=== PATIENT | female | born 1965 | race Two or more races ===

== ENCOUNTER 2023-11-02 14:12 | Emergency (ER) | payer MEDICAID, SELFPAY ==
[2023-11-02] VITALS (7 sets, daily range): BP systolic 145–191; BP diastolic 59–90; PULSE 65–91; RESP 16–18; TEMP 36.6–36.7; O2SAT 96–98; BMI 31.2
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
--- NOTE | ~2023-11-02 | CT_ITS ---
EXAMINATION: CT CHEST WITH CONTRAST CLINICAL INFORMATION: [facility] COMPARISON: Chest x-ray July 2019 TECHNIQUE: Multidetector volumetric CT imaging of the chest was obtained after the administration of 85 mL of Omnipaque 350 intravenous contrast without immediate adverse reactions. Axial MIP volume rendering provided. Sagittal and coronal reformatted images were obtained. This CT examination was performed using dose optimization techniques as appropriate, variously including the following: *Automated exposure control *Adjustment of mA and/or kV according to patient size (this includes techniques or standardized protocols for targeted exams where dose is matched to indication/reason for exam; i.e. extremities or head) *Use of iterative reconstruction technique DLP: 358 mGy-cm FINDINGS: LUNGS: 5 mm calcified right upper lobe nodule suggestive of a calcified granuloma. Lungs are otherwise clear. MEDIASTINUM: Enlarged heart. Possible trace pericardial effusion. Aorta difficult to evaluate due to motion artifact. No mediastinal fluid. No adenopathy. PLEURA: There is no pleural effusion. No pleural mass or thickening. No pneumothorax. AXILLA: No lymphadenopathy. OSSEOUS STRUCTURES: Degenerative changes of the spine. No fracture seen. CT/CT chest w IV con IMPRESSION: Enlarged heart. Possible trace pericardial effusion. No acute posttraumatic findings seen. Thoracic aorta not optimally evaluated due to motion artifact. Fleischner guidelines were followed.
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
--- NOTE | 2023-11-02 15:00 | PC.NURSE ---
pt to CT at this time
[2023-11-02] MEDS: Morphine Sulfate 4 MG/ML CARTRIDGE IVPUSH (15:29)
[2023-11-02] MEDS: 0.9 % Sodium Chloride 1,000 ML 999 ML IV (15:29)
[2023-11-02] MEDS: ondansetron HCL 4 MG/2 ML VIAL IVPUSH ×2 (15:29→19:45)
[2023-11-02 15:31] LABS: MANUAL DIFF FLAG NO
[2023-11-02 15:40] LABS: Basophils Absolute Auto 0.1 X10*3/uL (0.0-0.2); Basophils Percent Auto 0.7 % (0-2); Eosinophils Absolute Auto 0.1 X10*3/uL (0.0-0.4); Eosinophils Percent Auto 1.5 % (0-4); Hematocrit 47.2 % (37.0-47.0); Hemoglobin 15.7 g/dl (12.0-16.0); Imm Gran Abs Auto 0.03 X10*3/uL (0.00-0.03); Imm Gran Pct Auto 0.4 % (0.0-0.4); Lymphocytes Absolute Auto 1.4 X10*3/uL (1.2-4.9); Lymphocytes Percent Auto 20.4 % (20-40); Mean Corpuscular HGB Conc 33.3 g/dl (31.0-35.0); Mean Corpuscular Hemoglobin 28.5 pg (27.0-33.0); Mean Corpuscular Volume 85.8 fL (80.0-98.0); Monocytes Absolute Auto 0.5 X10*3/uL (0.1-1.2); Monocytes Percent Auto 6.9 % (2-11); Neutrophils Absolute Auto 4.8 x10*3/uL (2.0-8.3); Neutrophils Percent Auto 70.1 % (45-73); Platelet Count 226 X10*3/uL (160-400); Red Cell Distribution Width 13.2 % (11.0-16.0); White Blood Count 6.9 X10*3/uL (4.8-10.8)
[2023-11-02 15:48] LABS: Alanine Aminotransferase 22 U/L (0-31); Albumin Level 4.5 g/dL (3.5-5.0); Alkaline Phosphatase 90 U/L (39-117); Anion Gap 12 (12-20); Aspartate Amino Transferase 24 U/L (5-31); Bilirubin Direct 0.1 mg/dL (0.0-0.5); Bilirubin Total 0.5 mg/dL (0.0-1.0); Blood Urea Nitrogen 16 mg/dL (9-16); Calcium 9.9 mg/dL (8.4-10.2); Carbon Dioxide 28 mmol/L (22-29); Chloride 105 mmol/L (96-108); Estimated Glomerular Filt Rate > 60; Glucose Random 107 mg/dL (60-115); Sodium 141 mmol/L (135-145)
[2023-11-02] MEDS: HYDROmorphone HCl 1 MG/ML SYRINGE IVPUSH (16:47)
[2023-11-02] MEDS: iohexoL 350 MG/ML 100 ML INFUS..BTL IV (17:09)
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
[2023-11-02 21:37] LABS: Appearance Urine Clear; Color Urine Yellow; Glucose Urine UA Negative (Negative); Leukocyte Esterase Urine Negative (Negative); Nitrite Urine Negative (Negative); Specific Gravity - Urine >= 1.030 (1.005-1.025); Urine Blood Negative (Negative); Urine Ketones Negative (Negative); Urine Protein Negative (Neg-Trace)
== END 2023-11-02 22:32 | disposition home or self-care (01) ==
PROVIDERS: Physician Assistant Medical; Emergency Provider Emergency Medicine Emergency Medical Services
DX: S06.9X9A Unspecified intracranial injury with loss of consciousness of unspecified duration, initial encounter (principal); S13.4XXA Sprain of ligaments of cervical spine, initial encounter; S52.601A Unspecified fracture of lower end of right ulna, initial encounter for closed fracture; M54.2 Cervicalgia; R51.9 Headache, unspecified; R11.0 Nausea; M25.531 Pain in right wrist; R94.31 Abnormal electrocardiogram [ECG] [EKG]; R07.81 Pleurodynia; M54.50 Low back pain, unspecified; V29.39XA Other motorcycle (driver) (passenger) injured in unspecified nontraffic accident, initial encounter; Y93.9 Activity, unspecified; Y92.481 Parking lot as the place of occurrence of the external cause; Y99.8 Other external cause status; Z79.899 Other long term (current) drug therapy
CPT/HCPCS: 36415; 70450; 71260; 72125; 73110; 74177; 80048; 80076; 81003; 85025; 93005; 96361; 96374; 96375; 96376; 99284; 99285; J1170; J2270; J2405; Q9967

== ENCOUNTER → 2023-11-02 18:55 | Outpatient (BNV) | payer MEDICAID, SELFPAY | PROVIDERS: Emergency Provider Emergency Medicine Emergency Medical Services; Visit Provider Internal Medicine | DX: R94.31 Abnormal electrocardiogram [ECG] [EKG] (principal) | CPT/HCPCS: 93010 ==

== ENCOUNTER 2023-11-08 16:59 | Outpatient (REF) | payer MEDICAID, SELFPAY | END 2023-11-08 17:00 | disposition home or self-care (01) | LOC: HO.HOSX 16:59 | PROVIDERS: Visit Provider Orthopaedic Surgery | DX: Z13.89 Encounter for screening for other disorder (principal) ==

== ENCOUNTER 2023-11-09 07:59 | Outpatient (AMB) | payer MEDICAID, SELFPAY ==
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
[2023-11-09 08:25] VITALS: BMI 31.0
== END 2023-11-09 09:52 | disposition home or self-care (01) ==
PROVIDERS: Visit Provider Orthopaedic Surgery
DX: S52.244A Nondisplaced spiral fracture of shaft of ulna, right arm, initial encounter for closed fracture (principal); S62.654A Nondisplaced fracture of middle phalanx of right ring finger, initial encounter for closed fracture
CPT/HCPCS: 25530; 26740; 99203

== ENCOUNTER 2023-11-09 08:44 | Outpatient (REF) | payer MEDICAID, SELFPAY ==
--- NOTE | ~2023-11-09 | XR_ITS ---
EXAMINATION: XR RIGHT HAND AND WRIST CLINICAL INFORMATION: Pain in right hand, attention right ring finger base. Pain in right wrist. COMPARISON: 11/02/2023 right wrist. TECHNIQUE: 3 views of the right wrist. 3 views of the right hand with attention to the 4th digit. FINDINGS: RIGHT WRIST: Redemonstration of surgical hardware in the distal radius without evidence of failure or loosening. Redemonstration of previously noted well approximated distal radial fractures. Redemonstration of distal ulnar comminuted fractures, one involving the ulnar styloid, a second fracture extending from the articular surface to the ulnar metaphysis and a third oblique fracture involving the metadiaphyseal region extending into the distal ulnar shaft. Alignment is similar. Small bony density again identified at the ulnocarpal joint. RIGHT HAND: There is a mildly displaced comminuted fracture at the base of the proximal phalanx of the 4th digit with extension to the proximal articular surface. Moderate degenerative changes with hypertrophic change and calcifications in adjacent soft tissues at the 2nd DIP and 1st IP joints. XR/XR wrist RT min 3V IMPRESSION: 1. Redemonstration of comminuted fractures of the distal ulna with soft tissue swelling. 2. Distal radial ORIF appears intact. 3. Mildly displaced comminuted fracture of the 4th proximal phalanx. This study was presented today, 11/15/2023, for interpretation. [facility] staff will provide results to referring provider at this time.
--- NOTE | ~2023-11-09 | XR_ITS ---
EXAMINATION: XR RIGHT HAND AND WRIST CLINICAL INFORMATION: Pain in right hand, attention right ring finger base. Pain in right wrist. COMPARISON: 11/02/2023 right wrist. TECHNIQUE: 3 views of the right wrist. 3 views of the right hand with attention to the 4th digit. FINDINGS: RIGHT WRIST: Redemonstration of surgical hardware in the distal radius without evidence of failure or loosening. Redemonstration of previously noted well approximated distal radial fractures. Redemonstration of distal ulnar comminuted fractures, one involving the ulnar styloid, a second fracture extending from the articular surface to the ulnar metaphysis and a third oblique fracture involving the metadiaphyseal region extending into the distal ulnar shaft. Alignment is similar. Small bony density again identified at the ulnocarpal joint. RIGHT HAND: There is a mildly displaced comminuted fracture at the base of the proximal phalanx of the 4th digit with extension to the proximal articular surface. Moderate degenerative changes with hypertrophic change and calcifications in adjacent soft tissues at the 2nd DIP and 1st IP joints. XR/XR hand RT min 3V IMPRESSION: 1. Redemonstration of comminuted fractures of the distal ulna with soft tissue swelling. 2. Distal radial ORIF appears intact. 3. Mildly displaced comminuted fracture of the 4th proximal phalanx. This study was presented today, 11/15/2023, for interpretation. PSA staff will provide results to referring provider at this time.
== END 2023-11-09 08:45 | disposition home or self-care (01) ==
LOC: HO.HOSX 08:44
PROVIDERS: Visit Provider Orthopaedic Surgery
DX: M25.531 Pain in right wrist (principal); M79.641 Pain in right hand
CPT/HCPCS: 25530; 26740; 73110; 73130; 99202

== ENCOUNTER 2023-12-05 13:35 | Outpatient (REF) | payer MEDICAID, SELFPAY | END 2023-12-05 13:36 | disposition home or self-care (01) | LOC: HO.HOSX 13:35 | PROVIDERS: Visit Provider Orthopaedic Surgery | DX: Z13.89 Encounter for screening for other disorder (principal) ==

== ENCOUNTER 2023-12-06 10:03 | Outpatient (AMB) | payer MEDICAID, SELFPAY ==
[2023-12-06 10:35] VITALS: BMI 31.0
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
== END 2023-12-06 11:22 | disposition home or self-care (01) ==
PROVIDERS: Visit Provider Orthopaedic Surgery
DX: S52.244A Nondisplaced spiral fracture of shaft of ulna, right arm, initial encounter for closed fracture (principal); S62.654A Nondisplaced fracture of middle phalanx of right ring finger, initial encounter for closed fracture
CPT/HCPCS: 99024

== ENCOUNTER 2023-12-06 15:37 | Outpatient (REF) | payer MEDICAID, SELFPAY ==
--- NOTE | ~2023-12-06 | XR_ITS ---
EXAMINATION: XR HAND, RIGHT CLINICAL INFORMATION: Pain in right hand, at least 10 cm of ulna to visualize ulnar shaft fracture please. COMPARISON: 11/09/2023, 11/02/2023. Technique: 3 views of the right hand. FINDINGS: Redemonstration of plate and screws status post ORIF of previously noted well approximated distal fractures. Hardware appears intact. Redemonstration of comminuted fractures of the distal ulna: One involves the ulnar styloid, second fracture extends from the articular surface to the ulnar metadiaphysis, and third oblique fracture involves the metadiaphyseal region and extends into the ulnar shaft as previously noted. Alignment is similar. Small bony density again identified at the ulnocarpal joint. Redemonstration of linear lucencies at the base of the middle phalanx of the fourth digit, less conspicuous, characteristic of mildly displaced comminuted fracture at the base of the middle phalanx with some interval bridging callus formation. No definitive fracture of the proximal phalanx of the fourth digit is appreciated. Moderate degenerative changes in DIP joints. XR/XR hand RT min 3V IMPRESSION: 1. Distal radial ORIF appears intact. 2. Redemonstration of comminuted fractures of the distal ulna with soft tissue swelling. 3. Linear lucencies along the proximal aspect/base of the middle phalanx of the fourth digit are concerning for nondisplaced fracture. No definitive fracture of the proximal phalanx of the fourth digit is appreciated.
== END 2023-12-06 15:38 | disposition home or self-care (01) ==
LOC: HO.HOSX 15:37
PROVIDERS: Visit Provider Orthopaedic Surgery
DX: M79.641 Pain in right hand (principal); S52.24 Spiral fracture of shaft of ulna; S62.654D Nondisplaced fracture of middle phalanx of right ring finger, subsequent encounter for fracture with routine healing; X58.XXXD Exposure to other specified factors, subsequent encounter
CPT/HCPCS: 73130; 99212

== ENCOUNTER 2023-12-27 10:56 | Outpatient (AMB) | payer MEDICAID, SELFPAY ==
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
== END 2023-12-27 12:49 | disposition home or self-care (01) ==
PROVIDERS: Visit Provider Orthopaedic Surgery
DX: S52.244A Nondisplaced spiral fracture of shaft of ulna, right arm, initial encounter for closed fracture (principal); S62.654A Nondisplaced fracture of middle phalanx of right ring finger, initial encounter for closed fracture
CPT/HCPCS: 99024

== ENCOUNTER → 2023-12-27 10:56 | Outpatient (BNVA) | payer MEDICAID, SELFPAY | PROVIDERS: Visit Provider Orthopaedic Surgery | DX: S52.24 Spiral fracture of shaft of ulna (principal); S62.654D Nondisplaced fracture of middle phalanx of right ring finger, subsequent encounter for fracture with routine healing | CPT/HCPCS: 99212 ==

== ENCOUNTER 2024-01-02 14:30 | Outpatient (RCR) | payer MEDICAID, SELFPAY ==
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
== END 2024-01-30 14:05 | disposition home or self-care (01) ==
LOC: HO.OT 14:30
PROVIDERS: PCP Physician Assistant; Visit Provider Orthopaedic Surgery
DX: S52.24 Spiral fracture of shaft of ulna (principal); S62.654D Nondisplaced fracture of middle phalanx of right ring finger, subsequent encounter for fracture with routine healing
CPT/HCPCS: 97035; 97110; 97166

== ENCOUNTER 2024-09-17 08:26 | Outpatient (REF) | payer MEDICAID, SELFPAY ==
--- OUTSIDE RECORDS SUMMARY | 2024-09-17 08:45 | XMS_ITS | Clinical Summary ---
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 Active HYDROXYZINE HCL ORAL Take 25 mg by mouth 1 (one) time each day if needed (anxiety). Active sertraline HCl (SERTRALINE ORAL) Take 100 mg by mouth 1 (one) time each day. Active aspirin 81 mg EC tablet Take 1 tablet (81 mg total) by mouth 1 (one) time each day. 90 each 1 05/25/2024 5 Active atorvastatin (LIPITOR) 80 mg tablet Take 1 tablet (80 mg total) by mouth at bedtime. 60 each 1 05/24/2024 5 Active fexofenadine (TERRELL) 60 mg tablet Take 1 tablet (60 mg total) by mouth 2 (two) times a day if needed (sinus congestion) . 60 tablet 08/02/2024 Active Active Problems Problem Noted Date Diagnosed Date Cryptogenic stroke 08/23/2024 Acute ischemic left MCA stroke 05/23/2024 Stroke 05/22/2024 Encounters Date Type Department Care Team Description 09/06/2024 Telephone Neurostroke - [place] [address] [place] [address] Paris Alberto MD Heart monitor 08/30/2024 Telephone [facility] - [address] [place] [phone] Norris Camargo PA Referral (Received routine paper referral - Aug. ab) 08/27/2024 3:45 PM EST - 08/27/2024 11:59 PM EST Hospital [facility] at [address] [phone] Encounter for screening mammogram for malignant neoplasm of breast Discharge Disposition: Home or Self Care 08/15/2024 1:00 PM EST Consult Cardiac Arrythmia - [place] [address] [place] [phone] Sana Cali NP Cerebrovascular accident (CVA), unspecified mechanism (CMS/HCC) (Primary Dx) 08/09/2024 Telephone Cardiac Arrythmia - [place] [address] [place] [phone] Loki Garcia PA monitor results 08/07/2024 1:20 PM EST Office Visit Neurostroke - [place] [address] [place] [address] Paris Alberto MD History of ischemic stroke (Primary Dx) 08/02/2024 3:18 AM EST - 08/02/2024 10:30 AM EST Emergency [facility] Emergency [address] [place] [phone] Susy Topete MD Flores, Carlos M, MD Landry, Jonathan P, MD Chronic nonintractable headache, unspecified headache type (Primary Dx); Blurry vision, bilateral; History of CVA (cerebrovascular accident); Acute sinusitis, recurrence not specified, unspecified location Discharge Disposition: Home or Self Care from Last 3 Months Medical History Medical History Date Comments Hypertension Anemia Depression CVA (cerebral vascular accident) (CMS/HCC) Social History Tobacco Use Types Packs/Day Years Used Date Smoking Tobacco: Never Smokeless Tobacco: Never Tobacco Cessation:Counseling Given: Not Answered Alcohol Use Standard Drinks/Week Comments Yes 0 (1 standard drink = 0.6 oz pur e alcohol) Interpersonal Safety Answer Date Record ed Physical Abuse 05/23/2024 Verbal Abuse 05/23/2024 Comments No Sex and Gender Information Value Date Recorded Sex Assigned at Female 05/22/2024 6:19 PM EST Legal Sex Female 12:54 PM EST Gender Identity Female 08/14/2024 9:10 AM EST Sexual Orientation Choose not to disclose 2024 9:10 AM EST Obstetrics History Para Term AB IAB SAB Ectopic Multiple Livin g Live Births 3 Last Filed Vital Signs Vital Sign Reading Time Taken Comments Blood Pressure 166/87 08/07/2024 1:17 PM EST Pulse 61 08/07/2024 1:17 PM EST Temperature 36.6 ??C (97.9 ??F) 08/02/2024 10:[address] Respiratory Rate 18 08/07/2024 1:17 PM EST Oxygen Saturation 99% 08/07/2024 1:17 PM EST Inhaled Oxygen Concentration - - Weight 77.1 kg (170 lb) 08/27/2024 3:47 PM EST Height 160 cm (5' 3 ) 08/27/2024 3:47 PM EST Body Mass Index 30.11 08/27/2024 3:47 PM EST Plan of Treatment Upcoming Encounters Date Type Department Care Team (Late st Contact Info) Description 09/19/2024 3:40 PM EST Office Visit [facility] [address] [place] [phone] Harsha Mcallister MD [address] [place] [address] [place], [place] [phone] 11/21/2024 3:00 PM EDT Office Visit [facility] [place] [address] [place] [phone] Paris Alberto MD [address] [place] [address] [place], [place] [phone] Health Maintenance Due Date Last Done Comments Hepatitis B Vaccines (1 of 3 - 19+ 3-dose series) 1985 Cervical Cancer Screening: Pap Smear 1987 Pneumococcal Vaccine: 50+ Years (1 of 1 - PCV) 2016 Zoster Vaccines (1 of 2) 2016 Hepatitis C Screening 06/15/2022 Social Influencers of Health Screening 06/15/2022 COVID-19 Vaccine (3 - 2023- season) 2024 12/08/2020, 11/10/2020 Influenza Vaccine (#1) 2024 Hypertension/CHF/CAD Annual BMP Blood Test 08/02/2025 08/02/2024, 06/12/2024, 05/24/2024, Additional history exists Depression Screening 08/09/2025 08/09/2024 Colorectal Cancer Screening: FIT-DNA (Cologuard) 03/09/2026 03/09/2023 Breast Cancer Screening 08/27/2026 08/27/19, 04/13/2023, 03/25/2022, Additional history exists Cholesterol Screening (Lipid Panel) 05/23/2029 05/23/2024, 01/07/2023, 01/07/2023, Additional history exists DTaP,Tdap,and Td Vaccines (2 - Td or Tdap) 06/06/2034 06/06/2024 HIV Screening Completed 07/16/2019 HIB Vaccines Aged Out No longer eligi ble based on patient's age to complete this topic HPV Vaccines Aged Out No longer eligi ble based on patient's age to complete this topic Hepatitis A Vaccines Aged Out No long er eligible based on patient's age to complete this topic IPV Vaccines Aged Out No longer eligi ble based on patient's age to complete this topic MMR Vaccines Aged Out No longer eligi ble based on patient's age to complete this topic Meningococcal ACWY Vaccine Aged Out N o longer eligible based on patient's age to complete this topic Meningococcal B Vacine Aged Out No lo nger eligible based on patient's age to complete this topic Pneumococcal Vaccine: Pediatrics (0 to 5 Years) and At-Risk Patients (6 to 64 Years) Aged Out No longer eligible based on patient's age to complete this topic RSV Immunization Patients Under 20 months Aged Out No longer eligible based on patient's age to complete this topic Varicella Vaccines Aged Out No longer eligible based on patient's age to complete this topic Procedures Procedure Name Priority Date/Time Associated Diagnosis Comments MG MAMMO DIGITAL SCREENING W DEON BILAT Routine 08/27/2024 3:58 PM EST Encounter for screening mammogram for malignant neoplasm of breast MR BRAIN WO AND W CONTRAST STAT 08/02/2024 9:44 AM EST RESPIRATORY VIRUS PANEL MOLECULAR STUDY STAT 08/02/2024 6:[address] HEAD WO CONTRAST STAT 08/02/2024 6 :[address] ANGIO HEAD/NECK STROKE WO AND/OR W CONTRAST STAT 08/02/2024 6:00 AM EST ACTIVATED PARTIAL THROMBOPLASTIN TIME STAT 08/02/2024 3:38 AM EST PROTHROMBIN TIME WITH INR STAT 08/02/2024 3:38 AM EST CBC WITH AUTO DIFFERENTIAL STAT 08/02/2024 2:58 AM EST BASIC METABOLIC PANEL STAT 08/02/2024 2:58 AM EST CBC AND DIFFERENTIAL STAT 08/02/2024 2:58 AM EST ECG 12-LEAD STAT 08/02/2024 2:45 AM EST ECG ANNOTATED 08/02/2024 LIPID PANEL WITH REFLEX TO DIRECT LDL Routine 05/23/2024 8:23 AM EST from Last 3 Months or Most Recently Relevant to Health Maintenance Results * MG Mammo Digital Screening w Deon bilat (08/27/2024 3:58 PM EST) Anatomical Region Laterality Modality Breast Bilateral Mammography 08/28/2024 3:19 PM EST Impressions 08/28/2024 3:23 PM EST No mammographic evidence of malignancy. ??Benign findings. BI-RADS: ??Category 2: Benign RECOMMENDATION(S): 1: Routine screening mammogram BILATERAL in 1 year. -------- FINAL REPORT -------- Dictated By: QUE KENNY Dictated Date: 08/28/2024 15:19 ET Assigned Physician: QUE KENNY Reviewed and Electronically Signed By: QUE KENNY Signed Date: 08/28/2024 15:23 ET Workstation ID: [id number] Transcribed By: Self Edit Transcribed Date: 08/28/2024 15:19 ET Narrative 08/28/2024 3:23 PM EST EXAM: MAMMO DIGITAL SCREENING W DEON BILAT EXAM DATE AND TIME: 08/27/2024 3:47 PM HISTORY: SCREENING MAMMO FOR BREAST CANCER COMPARISON: 04/12/2023 through 12/03/2020 TECHNIQUE: Bilateral digital breast tomosynthesis was performed in the MLO projection. Computer aided detection with Oodle AI 3D 3.1 was employed. TISSUE DENSITY: a: The breasts are almost entirely fatty. FINDINGS: No suspicious masses, grouped microcalcifications, or areas of architectural distortion are seen. ??The skin and vascularity are unremarkable. ??Scattered bilateral benign calcifications are seen. Procedure Note Que Kenny MD - 08/28/2024 EXAM: MAMMO DIGITAL SCREENING W DEON BILAT EXAM DATE AND TIME: 08/27/2024 3:47 PM HISTORY: SCREENING MAMMO FOR BREAST CANCER COMPARISON: 04/12/2023 through 12/03/2020 TECHNIQUE: Bilateral digital breast tomosynthesis was performed in the MLOprojection. Computer aided detection with Oodle AI 3D 3.1 wasemployed. TISSUE DENSITY: a: The breasts are almost entirely fatty. FINDINGS: No suspicious masses, grouped microcalcifications, or areas ofarchitectural distortion are seen. The skin and vascularity areunremarkable. Scattered bilateral benign calcifications are seen. IMPRESSION: No mammographic evidence of malignancy. Benign findings. BI-RADS: Category 2: Benign RECOMMENDATION(S): 1: Routine screening mammogram BILATERAL in 1 year. -------- FINAL REPORT -------- Dictated By: QUE KENNY Dictated Date: 08/28/2024 15:19 ET Assigned Physician: QUE KENNY Reviewed and Electronically Signed By: QUE KENNY Signed Date: 08/28/2024 15:23 ET Workstation ID: [id number] Transcribed By: Self Edit Transcribed Date: 08/28/2024 15:19 ET us Zachery Campbell MD IMG BI PROCEDURES Final Result * MR Brain wo and w Contrast (08/02/2024 9:44 AM EST) Anatomical Region Laterality Modality Head and Neck Magnetic Resonan ce 08/02/2024 9:50 AM EST Impressions 08/02/2024 9:53 AM EST 1. ??No acute intracranial findings. 2. ??Extensive paranasal sinus disease. -------- FINAL REPORT -------- Dictated By: Mango Merino Dictated Date: 08/02/2024 09:50 ET Assigned Physician: Mango Merino Reviewed and Electronically Signed By: Mango Merino Signed Date: 08/02/2024 09:53 ET Workstation ID: [id number] Transcribed By: Self Edit Transcribed Date: 08/02/2024 09:50 ET Narrative 08/02/2024 9:53 AM EST PROCEDURE: Contrast-enhanced MRI of the brain. HISTORY: Brain mass or lesion. TECHNIQUE: Multiplanar multisequence MRI of the brain with and without intravenous contrast. IV CONTRAST DOSE: 15 mL intravenous Dotarem from a 15 mL vial with 0 mL discarded. COMPARISON: Same-day CT. FINDINGS: BRAIN: No diffusion abnormality. ??No mass or extra-axial fluid collection. ??No hydrocephalus. ??The major intracranial flow voids are preserved. Age commensurate ventricles and sulci. ??No abnormal enhancement. ORBITS: Normal. SINUSES/MASTOIDS: Mild mucosal thickening in the medial right frontal sinus and throughout the ethmoid air cells. ??The left maxillary antrum is partially obscured by susceptibility artifact. ??There is prominent circumferential mucosal thickening in both maxillary antra, more prominent on the left. ??Mild mucosal thickening along the floor of the left sphenoid sinus. CALVARIUM: Normal. OTHER: The visualized skull base soft tissues are normal. Procedure Note Mango Merino MD - 08/02/2024 PROCEDURE: Contrast-enhanced MRI of the brain. HISTORY: Brain mass or lesion. TECHNIQUE: Multiplanar multisequence MRI of the brain with and withoutintravenous contrast. IV CONTRAST DOSE: 15 mL intravenous Dotarem from a 15 mL vial with 0 mLdiscarded. COMPARISON: Same-day CT. FINDINGS: BRAIN: No diffusion abnormality. No mass or extra-axial fluid collection.No hydrocephalus. The major intracranial flow voids are preserved. Agecommensurate ventricles and sulci. No abnormal enhancement. ORBITS: Normal. SINUSES/MASTOIDS: Mild mucosal thickening in the medial right frontalsinus and throughout the ethmoid air cells. The left maxillary antrum ispartially obscured by susceptibility artifact. There is prominentcircumferential mucosal thickening in both maxillary antra, more prominenton the left. Mild mucosal thickening along the floor of the left sphenoidsinus. CALVARIUM: Normal. OTHER: The visualized skull base soft tissues are normal. IMPRESSION: 1. No acute intracranial findings. 2. Extensive paranasal sinus disease. -------- FINAL REPORT -------- Dictated By: Mango Merino Dictated Date: 08/02/2024 09:50 ET Assigned Physician: Mango Merino Reviewed and Electronically Signed By: Mango Merino Signed Date: 08/02/2024 09:53 ET Workstation ID: [id number] Transcribed By: Self Edit Transcribed Date: 08/02/2024 09:50 ET Susy Topete MD [facility] [place] MRI PROCEDURES Final Result * Respiratory virus panel molecular study (08/02/2024 6:57 AM EST) Pathologist [facility] Adenovirus Detection by PCR Not Detected Not Detected LAB MICROBIOLOGY METHOD 08/02/2024 8:40 AM EST [facility] Influenza A PCR Not Detected Not Detected LAB MICROBIOLOGY METHOD 08/02/2024 8:40 AM [facility] Influenza B PCR Not Detected Not Detected LAB MICROBIOLOGY METHOD 08/02/2024 8:40 AM [facility] Coronavirus 229E Not Detected Not Detected LAB MICROBIOLOGY METHOD 08/02/2024 8:40 AM [facility] Coronavirus HKU1 Not Detected Not Detected LAB MICROBIOLOGY METHOD 08/02/2024 8:40 AM [facility] Coronavirus OC43 Not Detected Not Detected LAB MICROBIOLOGY METHOD 08/02/2024 8:40 AM [facility] Coronavirus NL63 Not Detected Not Detected LAB MICROBIOLOGY METHOD 08/02/2024 8:40 AM [facility] Parainfluenza Virus 1 Not Detected Not Detected LAB MICROBIOLOGY METHOD 08/02/2024 8:40 AM [facility] Parainfluenza Virus 2 Not Detected Not Detected LAB MICROBIOLOGY METHOD 08/02/2024 8:40 AM [facility] Parainfluenza Virus 3 Not Detected Not Detected LAB MICROBIOLOGY METHOD 08/02/2024 8:40 AM [facility] Parainfluenza Virus 4 Not Detected Not Detected LAB MICROBIOLOGY METHOD 08/02/2024 8:40 AM [facility] RSV PCR Not Detected Not Detected LAB MICROBIOLOGY METHOD 08/02/2024 8:40 AM [facility] Human Metapneumovirus A and B Not Detected Not Detected LAB MICROBIOLOGY METHOD 08/02/2024 8:40 AM [facility] Rhinovirus/Entero virus Not Detected Not Detected LAB MICROBIOLOGY METHOD 08/02/2024 8:40 AM [facility] Bordetella pertussis Not Detected Not Detected LAB MICROBIOLOGY METHOD 08/02/2024 8:40 AM [facility] Bordetella parapertussis Not Detected Not Detected LAB MICROBIOLOGY METHOD 08/02/2024 8:40 AM EST [facility] Mycoplasma pneumo by PCR Not Detected Not Detected LAB MICROBIOLOGY METHOD 08/02/2024 8:40 AM EST [facility] Chlamydia pneumoniae Not Detected Not Detected LAB MICROBIOLOGY METHOD 08/02/2024 8:40 AM EST [facility] SARS COV-2 Not Detected Not Detected LAB MICROBIOLOGY METHOD 08/02/2024 8:40 AM EST [facility] Swab Both anterior nares / Unknown Non-blood Collection / Unknown 08/02/2024 6:57 AM EST 08/02/2024 7:12 AM EST [facility] - 08/02/2024 8:40 AM EST Testing was performed using the [employer] Respiratory Pathogen PCR Assay. All results must be correlated with the clinical findings. Results should not be used as the sole basis for diagnosis. False Negative results may occur from the presence of sequence variants in the region targeted by the assay or the presence of inhibitors. Results may be affected by concurrent antiviral/antimicrobial therapy or levels of organisms that are below the limit of detection. us Susy Topete MD LAB MICROBIOLOGY - GENER AL ORDERABLES Final Result [facility] [address] [place] [address], * CT Angio Head/Neck Stroke wo and/or w Contrast (08/02/2024 6:00 AM EST) Anatomical Region Laterality Modality Head and Neck Computed Tomogra phy 08/02/2024 6:27 AM EST Impressions 08/02/2024 6:27 AM EST Impression: There is no intracranial occlusion. The vasculature of the head and neck is widely patent. Incidental findings. This document has been electronically signed by: Juan Perdue MD on 08/02/2024 06:27:45 Narrative 08/02/2024 6:[address] angiography head and neck with contrast. 3D Postprocessing. Comparison: None Findings: CTA head: intracranial segments of the internal carotid arteries are widely patent. Anterior and posterior circulation are widely patent. No aneurysm, dissection or large vessel occlusion. No significant stenosis. No abnormal postcontrast enhancement. Again, there is near-complete opacification of the maxillary sinuses. CTA neck: Normal branching pattern of the aortic arch. The bilateral common, internal and external carotid arteries are widely patent without significant atherosclerotic disease. The right vertebral artery is mildly dominant. The vertebral arteries are patent bilaterally. No thyroid lesion. The visualized lung apices demonstrate no acute process. Osseous structures of the cervical spine demonstrate mild degenerative change. Procedure Note Juan Perdue MD - 08/02/2024 CT angiography head and neck with contrast. 3D Postprocessing. Comparison: None Findings: CTA head: intracranial segments of the internal carotid arteries are widelypatent. Anterior and posterior circulation are widely patent. No aneurysm, dissection or large vessel occlusion. No significant stenosis. No abnormal postcontrast enhancement. Again, there is near-complete opacification of the maxillary sinuses. CTA neck: Normal branching pattern of the aortic arch. The bilateral common, internal and external carotid arteries are widely patent without significant atherosclerotic disease. The right vertebral artery is mildly dominant. The vertebral arteries are patent bilaterally. No thyroid lesion. The visualized lung apices demonstrate no acute process. Osseous structures of the cervical spine demonstrate mild degenerative change. IMPRESSION: Impression: There is no intracranial occlusion. The vasculature of the head and neck is widely patent. Incidental findings. This document has been electronically signed by: Juan Perdue MD on 08/02/2024 06:27:45 Susy Topete MD IM CT PROCEDURES Final Result * CT Head wo Contrast (08/02/2024 6:00 AM EST) Anatomical Region Laterality Modality Head and Neck Computed Tomogra phy 08/02/2024 6:25 AM EST Impressions 08/02/2024 6:25 AM EST 1. No acute intracranial findings. 2. Significant paranasal sinus disease most pronounced within the maxillary sinuses. This document has been electronically signed by: Juan Perdue MD on 08/02/2024 06:25:57 Narrative 08/02/2024 6:[address] head without contrast Comparison: CT - CT HEAD STROKE WO CONTRAST - 06/12/24 23:35 EST Findings: No intra-axial mass, midline shift, hydrocephalus, or acute hemorrhage. No significant atrophy-like change or white matter disease. There is opacification of the maxillary sinuses and mucoperiosteal thickening of the ethmoid air cells. The orbits are within normal limits. There is no acute fracture. Procedure Note Juan Perdue MD - 08/02/2024 CT head without contrast Comparison: CT - CT HEAD STROKE WO CONTRAST - 06/12/24 23:35 EST Findings: No intra-axial mass, midline shift, hydrocephalus, or acute hemorrhage. No significant atrophy-like change or white matter disease. There is opacification of the maxillary sinuses and mucoperiosteal thickening of the ethmoid air cells. The orbits are within normal limits. There is no acute fracture. IMPRESSION: 1. No acute intracranial findings. 2. Significant paranasal sinus disease most pronounced within the maxillary sinuses. This document has been electronically signed by: Juan Perdue MD on 08/02/2024 06:25:57 Susy Topete MD IMG CT PROCEDURES Final Result * Activated partial thromboplastin time (08/02/2024 3:38 AM EST) [facility] aPTT 29.9 24.1 - 39.3 sec LAB COAGULATION METHOD 08/02/2024 4:20 AM EST [facility] Blood Venous blood specimen / Unknown Venipuncture / Unknown 08/02/2024 3:38 AM EST 08/02/2024 4:04 AM EST Susy Topete MD LAB BLOOD ORDERABLES Fin al Result [facility] [address] [place] [address], [place] [phone] * (ABNORMAL) Prothrombin time with INR (08/02/2024 3:38 AM EST) Pathologist [facility] Protime 14.2(H) 10.6 - 13.9 sec LAB COAGULATION METHOD 08/02/2024 4:20 AM EST [facility] INR 1.1 LAB COAGULATION METHOD 08/02/2024 4:20 AM [facility] Blood Venous blood specimen / Unknown Venipuncture / Unknown 08/02/2024 3:38 AM EST 08/02/2024 4:04 AM EST us Susy Topete MD LAB BLOOD ORDERABLES Fin al Result [facility] [address] [place] [address], * (ABNORMAL) CBC auto differential (08/02/2024 2:58 AM EST) [facility] WBC 7.0 4.8 - 10.8 K/mcL LAB HEMETOLOGY METHOD 08/02/2024 3:13 AM [facility] RBC 4.90(H) 3.80 - 4.80 M/mcL LAB HEMETOLOGY METHOD 08/02/2024 3:13 AM [facility] Hemoglobin 13.6 11.5 - 16.0 g/dL LAB HEMETOLOGY METHOD 08/02/2024 3:13 AM [facility] Hematocrit 42.8 35.0 - 47.0 % LAB HEMETOLOGY METHOD 08/02/2024 3:13 AM [facility] MCV 87.3 79.0 - 98.0 FL LAB HEMETOLOGY METHOD 08/02/2024 3:13 AM [facility] MCH 27.8 27.0 - 32.0 pcg LAB HEMETOLOGY METHOD 08/02/2024 3:13 AM [facility] MCHC 31.8(L) 32.0 - 37.0 g/dL LAB HEMETOLOGY METHOD 08/02/2024 3:13 AM [facility] RDW 12.9 11.0 - 15.0 % LAB HEMETOLOGY METHOD 08/02/2024 3:13 AM [facility] Platelets 252 130 - 400 K/mcL LAB HEMETOLOGY METHOD 08/02/2024 3:13 AM [facility] MPV 9.0 7.0 - 11.0 FL LAB HEMETOLOGY METHOD 08/02/2024 3:13 AM [facility] NRBC 0.0 <1.0 % LAB HEMETOLOGY METHOD 08/02/2024 3:13 AM [facility] NRBC Absolute 0.00 <0.10 K/mcL LAB HEMETOLOGY METHOD 08/02/2024 3:13 AM [facility] Neutrophils Relative 55.3 % LAB HEMETOLOGY METHOD 08/02/2024 3:13 AM [facility] Lymphocytes Relative 33.1 % LAB HEMETOLOGY METHOD 08/02/2024 3:13 AM [facility] Monocytes Relative 8.1 % LAB HEMETOLOGY METHOD 08/02/2024 3:13 AM [facility] Eosinophils Relative 2.0 % LAB HEMETOLOGY METHOD 08/02/2024 3:13 AM [facility] Basophils Relative 0.9 % LAB HEMETOLOGY METHOD 08/02/2024 3:13 AM [facility] Immature Granulocytes Relative 0.6 % LAB HEMETOLOGY METHOD 08/02/2024 3:13 AM [facility] Neutrophils Absolute 3.89 1.50 - 7.00 K/mcL LAB HEMETOLOGY METHOD 08/02/2024 3:13 AM [facility] Lymphocytes Absolute 2.33 1.00 - 5.00 K/mcL LAB HEMETOLOGY METHOD 08/02/2024 3:13 AM [facility] Monocytes Absolute 0.57 0.20 - 1.00 K/mcL LAB HEMETOLOGY METHOD 08/02/2024 3:13 AM EST [facility] Eosinophils Absolute 0.14 0.00 - 0.50 K/[facility] LAB HEMETOLOGY METHOD 08/02/2024 3:13 AM EST [facility] Basophils Absolute 0.06 0.00 - 0.20 K/mcL LAB HEMETOLOGY METHOD 08/02/2024 3:13 AM EST [facility] Immature Granulocytes Absolute 0.04(H) 0.00 - 0.03 K/mcL LAB HEMETOLOGY METHOD 08/02/2024 3:13 AM [facility] Blood Venous blood specimen / Unknown Venipuncture / Unknown 08/02/2024 2:58 AM EST 08/02/2024 3:09 AM EST Susy Topete MD LAB BLOOD ORDERABLES Fin al Result [facility] [address] [place] [address], * (ABNORMAL) Basic metabolic panel (08/02/2024 2:58 AM EST) Sodium 141 133 - 145 mmol/L LAB CHEMISTRY METHOD 08/02/2024 3:29 AM [facility] Potassium 3.5 3.5 - 5.5 mmol/L LAB CHEMISTRY METHOD 08/02/2024 3:29 AM [facility] Chloride 109 96 - 110 mmol/L LAB CHEMISTRY METHOD 08/02/2024 3:29 AM [facility] CO2 28 21 - 32 mmol/L LAB CHEMISTRY METHOD 08/02/2024 3:29 AM [facility] Anion Gap 4 3 - 11 LAB CHEMISTRY METHOD 08/02/2024 3:29 AM EST [facility] Glucose 114(H) 70 - 100 mg/dL LAB CHEMISTRY METHOD 08/02/2024 3:29 AM EST [facility] BUN 17 5 - 25 mg/dL LAB CHEMISTRY METHOD 08/02/2024 3:29 AM [facility] Creatinine 0.82 0.50 - 1.10 mg/dL LAB CHEMISTRY METHOD 08/02/2024 3:29 AM EST [facility] eGFR 83 >=60 mL/min/1. 73m2 LAB CHEMISTRY METHOD 08/02/2024 3:29 AM EST [facility] Comment:Calculation based on the??Chronic Kidney Disease Epidemiology Collaboration (CKD-EPI) equation refit??without adjustment for race. BUN/Creatinine Ratio 20.7 LAB CHEMISTRY METHOD 08/02/2024 3:29 AM EST [facility] Calcium 9.0 8.5 - 10.5 mg/dL LAB CHEMISTRY METHOD 08/02/2024 3:29 AM EST [facility] Blood Venous blood specimen / Unknown Venipuncture / Unknown 08/02/2024 2:58 AM EST 08/02/2024 3:09 AM EST Susy Topete MD LAB BLOOD ORDERABLES Fin al Result [facility] [address] [place] [address], * ECG 12 lead (08/02/2024 2:45 AM EST) Ventricular Rate ECG 54 BPM GEMUSE Atrial Rate 54 BPM GEMUSE P-R Interval 156 ms GEMUSE QRS Duration 102 ms GEMUSE Q-T Interval 410 ms GEMUSE QTc 388 ms GEMUSE P Wave [place] 47 degrees GEMUSE R [place] -16 degrees GEMUSE T [place] 0 degrees GEMUSE ECG Interpretation Sinus bradycardia Minimal voltage criteria for LVH, may be normal variant Borderline ECG When compared with ECG of 12-JUN-2024 23:53, T wave inversion now evident in Inferior leads T wave inversion no longer evident in Anterolateral leads Confirmed by Camille GARCIA JAMES ([id number]) on 08/02/2024 9:33:20 PM GEMUSE 08/02/2024 2:45 AM EST 08/02/2024 9:33 PM EST us Susy Topete MD ECG ORDERABLES Final Re sult GEMUSE * ECG-Annotated (08/02/2024) us Provider Onbase MD ECG ORDERABLES Final Result * (ABNORMAL) Lipid panel with reflex to direct LDL (05/23/2024 8:23 AM EST) Cholesterol 250(H) 0 - 200 mg/dL LAB CHEMISTRY METHOD 05/23/2024 9:15 AM EST [facility] Triglycerides 185(H) <150 mg/dL LAB CHEMISTRY METHOD 05/23/2024 9:15 AM EST [facility] HDL 44 37 - 92 mg/dL LAB CHEMISTRY METHOD 05/23/2024 9:15 AM EST [facility] LDL Calculated 169(H) 50 - 130 mg/dL LAB CHEMISTRY METHOD 05/23/2024 9:15 AM EST [facility] VLDL Cholesterol Janes 37 mg/dL LAB CHEMISTRY METHOD 05/23/2024 9:15 AM EST [facility] Comment:No established refer ence range. Blood Venous blood specimen / Unknown Venipuncture / Unknown 05/23/2024 8:23 AM EST 05/23/2024 8:44 AM EST us Sharonda Camarena MD LAB BLOOD ORDERABLES Final Resul t [facility] [address] [place] [address], [place] [phone] from Last 3 Months or Most Recently Relevant to Health Maintenance Insurance MEDICAID - [place] Advance Directives Documents on File Type Date Recorded Patient Entry Level Account Representative Expl anation Health Care Decision (hx) 09/12/2019 AD RAMOS DIRECTIVE Health Care Decision (hx) 09/12/2019 AD RAMOS DIRECTIVE Health Care Decision (hx) 09/12/2019 AD RAMOS DIRECTIVE Health Care Decision (hx) 09/12/2019 AD RAMOS DIRECTIVE Health Care Decision (hx) 09/12/2019 AD RAMOS DIRECTIVE Health Care Decision (hx) 09/12/2019 AD RAMOS DIRECTIVE Health Care Decision (hx) 09/12/2019 AD RAMOS DIRECTIVE Health Care Decision (hx) 09/12/2019 AD RAMOS DIRECTIVE Health Care Decision (hx) 09/12/2019 AD RAMOS DIRECTIVE Health Care Decision (hx) 09/12/2019 AD RAMOS DIRECTIVE Health Care Decision (hx) 09/12/2019 AD RAMOS DIRECTIVE Health Care Decision (hx) 09/12/2019 AD RAMOS DIRECTIVE Health Care Decision (hx) 09/12/2019 AD RAMOS DIRECTIVE Health Care Decision (hx) 09/12/2019 AD RAMOS DIRECTIVE Health Care Decision (hx) 09/12/2019 AD RAMOS DIRECTIVE Health Care Decision (hx) 09/12/2019 AD RAMOS DIRECTIVE * Full Code - Confirmed (Latest Code Status on File) Date Activated Date Inactivated Comments 05/23/2024 1:41 AM 05/24/2024 8:[address] atus was ascertained in the following way: Code status discussion: discussion with patient To update the patient's code status, place a code status order. Do not modify or discontinue any currently active code status orders. * Full Code - Default Date Activated Date Inactivated Comments 05/22/2024 7:36 PM 05/23/2024 1:41 AM This is orde r is used when code status has not been discussed with the patient, or code status is otherwise unknown/unconfirmed To update the patient's code status, place a code status order. Do not modify or discontinue any currently active code status orders. Care Teams Brasswind Instrument Repairer Relationship Specialty Start Date End Date Norris Camargo PA [address] [place] [address] PCP - General 02/27/21
--- OUTSIDE RECORDS SUMMARY | 2024-09-17 08:47 | XMS_ITS | Encounter Summary ---
Author Organization [facility] Address [address] [place] [address] Care Team Providers Care Communications Designer Name Role Phone Annika Lehman Primary Care Provider [phone] Reason for Visit * Reason Comments Medication Management Encounter Details Date Type Department Care Team ([facility] Contact Info) Description 08/20/2024 11:30 AM EST / Visits [address] [phone] Rashmi Valencia PMHNP [address] [place] [phone] Monique Wise [address] [place] [address] Severe episode of recurrent major depressive disorder, without psychotic features (HCC-CMS) (Primary Dx); Insomnia, unspecified type; Depressed mood Social History Tobacco Use Types Packs/Day Years Used Date Smoking Tobacco: Never Passive Smoke Exposure: Never Smokeless Tobacco: Never Alcohol Use Standard Drinks/Week Comments Not Currently 1 (1 standard drink = 0.6 oz pure alcohol) socially monthly or less than monthy Social Connections Answer Date Recorded Connectedness 0 01/07/2023 Financial Resource Strain Answer Date R ecorded Financial Resource Strain 0 2022 Stress Answer Date Recorded Stress 0 01/07/2023 Physical Activity Answer Date Recorded Physical Activity 0 03/11/2019 Food Insecurity Answer Date Recorded Food 0 01/07/2023 Transportation Needs Answer Date Record ed Transportation 0 01/07/2023 Housing Stability Answer Date Recorded Housing 0 01/07/2023 Safety and Environment Answer Date Carlos rded Safety 0 01/07/2023 Utilities Answer Date Recorded Utilities 0 01/07/2023 Employment Answer Date Recorded Stress 0 01/07/2023 Comments No Sex and Gender Information Value Date Recorded Sex Assigned at Female 11/21/2017 7:04 AM PDT Legal Sex Female 8:36 AM PDT Gender Identity Female 11/21/2017 7:04 AM PDT Sexual Orientation Straight 07/17/2019 7: 21 AM PST COVID-19 Exposure Response Date Recorded In the last 10 days, have yo u been in contact with someone who was confirmed or suspected to have Coronavirus/COVID-19? Unable to assess 08/03/2024 9:55 AM EST documented as of this encounter Progress Notes * Rashmi Valencia, HNP - 08/20/2024 11:49 AM EST The following visit was conducted via Telephone. I educated the patient/guardian on the terms of telehealth and the patient verbally consented to this telemedicine visit. The patient was identified using their Name, and Address. I identified myself as Rashmi Valencia, Psychiatric Nurse Sarah dias from [facility], calling from [place], [place]. It was conducted in a private space to protect HIPPA sensitive information. Precautions were taken to provide confidentiality and security and patient was made aware of privacy considerations. The patient/guardian was notified how they can see a clinician in-person in the event of an emergency or if otherwise needed. TIME STARTED: 11:30am TIME ENDED: 12:00pm Personal Companion used during visit? Monique Wise ASSESSMENT: reports that her mood is sad, I'm always crying . No reports of adverse or side effects with medications. Patient reports improvement and stability appetite and sleep. Patient does not endorse SI/HI/AH/VH. Feels the depression has not improved much, especially when she considers the abilities she has lost after having experienced a stroke. Is working with therapist here a [facility]. Complains of loss of taste and smell, says since having a virus. We discussed current medications, she is finding them somewhat helpful. No changes at this time, will continue with them and with therapy sessions. Objective Note GENERAL APPEARANCE BEHAVIOR AND ATTITUDE: Visit via telehealth. Voice normal tone, inflection, dina, volume. No pressured, rapid speech orlatency noted. No lability or constriction noted. Cooperative with interview, engaged in discussionregarding symptoms and medications. MSE: Emotion/Mood Depressed and Sad Coping (Observed Emotional State) Cooperative and Depression Speech Clear, coherent and Moderate rate & volume Orientation Oriented to all domains Thought Processes WNL Hallucinations Denies hallucinations Other: Additional comments: Delusions No delusions Assessment and Plan F33.2 Severe episode of recurrent major depressive disorder, without psychotic features ([facility]LY [facility]) (primary encounter diagnosis) G47.00 Insomnia, unspecified type R45.89 Depressed mood Plan: Continue on medications prescribed. Patient to follow up in 4-6 weeks. Encouraged to call [facility] if any concerns arise. Patient acknowledges and verbalize understanding. documented in this encounter Plan of Treatment Upcoming Encounters Date Type Department Care Team (Late st Contact Info) Description 09/25/2024 11:30 AM EDT / Visits [address] [phone] Rashmi Valencia PMHNP [facility] [place] [address] Monique Wise [address] [place] [address] 09/26/2024 11:00 AM EDT / Visits [facility] [address] [place] [phone] Kiel Santos LCSW [address] [place] [address] documented as of this encounter Goals Goal Patient Goal Type Associated Problems Recent Progress Patient-Stated? Author Blood Pressure < 120/80 Blood Pressure 126/78( 025 3:06 PM EST) Magdalena Ramon LPN documented as of this encounter Visit Diagnoses Diagnosis Severe episode of recurrent major depressive disorder, without psychotic features (FORM[facility]LY [facility])- Primary Insomnia, unspecified type Depressed mood documented in this encounter Additional Health Concerns Assessment Noted Time PHQ-9 Depression Total Score: 0 08/09/19 25 3:10 PM PST documented as of this encounter Care Teams Communications Designer Relationship Specialty Start Date End Date Annika Lehman PA [facility] [place] [address] PCP - General Primary Care 01/10/24 documented as of this encounter
--- OUTSIDE RECORDS SUMMARY | 2024-09-17 08:47 | XMS_ITS | Encounter Summary ---
Author Organization [facility] Address [address] [place] [address] Care Team Providers Care Manager Clinical Research Name Role Phone Norris Camargo Primary Care Provider [phone] Reason for Visit * Reason Onset Date Comments Heart monitor 09/06/2024 Encounter Details Date Type Department Care Team (Late st Contact Info) Description 09/06/2024 Telephone Neurostroke - [facility] [address] [place] [phone] Paris Alberto MD [address] [place] [phone] Heart monitor Social History Tobacco Use Types Packs/Day Years Used Date Smoking Tobacco: Never Smokeless Tobacco: Never Alcohol Use Standard Drinks/Week Comments Yes 0 [...] not to disclose 2024 9:10 AM EST documented as of this encounter Functional Status * Are you deaf or do you have serious difficulty hearing? Answer Date of Assessment Author No 05/22/2024 6:48 PM Charla Arreola RN * Are you blind or do you have serious difficulty seeing, even when wearing glasses? Answer Date of Assessment Author No 05/22/2024 6:48 PM Charla Arreola RN * Do you have serious difficulty walking or climbing stairs? Answer Date of Assessment Author No 05/22/2024 6:48 PM Charla Arreola RN * Do you have serious difficulty dressing or bathing? Answer Date of Assessment Author No 05/22/2024 6:48 PM Charla Arreola RN * Because of a physical, mental, or emotional condition, do you have serious difficulty doing errandsalone such as visiting the doctor? Answer Date of Assessment Author No 05/22/2024 6:48 PM Charla Arreola RN documented as of this encounter Mental Status * Because of a physical, mental, or emotional condition, do you have serious difficulty concentrating, remembering, or making decisions? (5 years old or older) Answer Entry Date Author No 05/22/2024 6:48 PM Charla Arreola RN documented in this encounter Progress Notes * Berna Del Cid - 09/06/2024 1:29 PM EST Patient boyfriend called. recommend them to see a Train Caller for a heart monitor. They were unable to service patient because she was in [place]. He cannot find the # of the Train Caller that was given to him. documented in this encounter Plan of Treatment Upcoming Encounters Date Type Department Care Team (Late st Contact Info) Description 09/19/2024 3:40 PM EST [facility] [address] [place] [address] Harsha Mcallister MD [address] [place] [address] 11/21/2024 3:00 PM EDT Office Visit Neurostroke - [facility] [address] [place] [address] Paris Alberto MD [address] [place] [address] documented as of this encounter Visit Diagnoses Not on filedocumented in this encounter Care Teams Manager Clinical Research Relationship Specialty Start Date End Date Norris Camargo PA [address] [place] [address] PCP - General 02/27/21 documented as of this encounter
--- OUTSIDE RECORDS SUMMARY | 2024-09-17 08:47 | XMS_ITS | Encounter Summary ---
Author Organization [facility] Address [address] [place] [address] Care Team Providers Care Bar Finish Operator Name Role Phone Annika Lehman Primary Care Provider [phone] Reason for Visit * Reason Comments Telehealth (Audio) Encounter Details Date Type Department Care Team ([facility] Contact Info) Description 08/31/2024 11:00 AM EST / Visits [facility] [address] [place] [address] Kiel Santos, ALLAN [address] [place] [address] Severe episode of recurrent major depressive disorder, [...] as of this encounter Progress Notes * Kiel Santos LCSW - 08/31/2024 11:35 AM EST The following visit was conducted via Audio only. I educated the patient/guardian on the terms of telehealth and the patient verbally consented to this telemedicine visit. The patient was identified using their Name, and [facility] ID. I identified myself as Kiel Santos LCSW from [facility]. It was conducted in a private space to protect HIPPA sensitive information. Precautions were taken to provide confidentiality and security and patient was made aware of privacy considerations. The patients location was obtained and is [employer]. The patient/guardian was notified that the services were being provided from [facility]). The patient/guardian was notified how they can see a clinician in-person in the event of an emergency or if otherwise needed. Visit START TIME [address] used during visit? No TOTAL TIME IN SESSION: 45 minutes START/ END TIME: 1100 - 1145 RISK ASSESSMENT: PERSON DENIES SI/HI OTHER PEOPLE PRESENT IN SESSION: NONE PROGRESS SINCE LAST SESSION TOWARD GOALS/OBJECTIVES: Client reported struggle with medical issues and the limitations. NEW CONCERNS TODAY: NONE MOOD: DYSPHORIC and ANXIOUS AFFECT: N/A SPEECH: WNL BEHAVIOR: COOPERATIVE and LETHARGIC EYE CONTACT: N/A THOUGHT PROCESSES: WNL ORIENTATION: WNL MEDICAL CONCERNS: NOTHING NEW COMMENT: SUBSTANCE USE: NO HX INTERVENTIONS: Therapeutic techniques used during session involved an empathy perspective, and open-ended questions, involving the client in the decision- making process. Reflection to allow the speaker to pay attention to their own thoughts and to focus on what they communicate, and to encourage them to continue talking. Active listening was used to allow the client the opportunity to express thoughts, feelings and needs while feedback, validation and emotional support were provided. Socratic questioning to identify, and challenge the validity of, thoughts, beliefs and assumptions associated with a client???s troubles. Techniques used were: Exploration of symptoms, Paraphrasing, Reframing, and Empowerment. PERSON'S RESPONSE TO INTERVENTIONS: FULLY ENGAGED , COOPERATIVE , and PLEASED WITH NEW SKILLS PLAN FOR NEXT SESSION: Therapist will assist the client in developing an awareness of their emotions and automatic thoughts that reflect a negative self- schemata and trigger the symptoms/disorders. DATE OF NEXT SESSION: in 3 weeks CLIENT WILL: USE SKILLS TAUGHT IN SESSION and CONSIDER HOW DISCUSSION RELATES TO HIS/HER LIFE documented in this encounter Plan of Treatment Upcoming Encounters Date Type Department Care Team (Late st Contact Info) Description 09/25/2024 11:30 AM EDT / Visits [address] [phone] Rashmi Valencia PMHNP [address] [place] [address] Monique Wise [address] [place] [address] 09/26/2024 11:00 AM EDT / Visits [address] [phone] Kiel Santos LCSW [address] [place] [address] documented as of this encounter Goals Goal Patient Goal Type Associated Problems Recent Progress Patient-Stated? Author Blood Pressure < 120/80 Blood Pressure 126/78( 025 3:06 PM EST) Magdalena Ramon LPN documented as of this encounter Visit Diagnoses Diagnosis Severe episode of recurrent major depressive disorder, without psychotic features ([facility])- Primary Insomnia, unspecified type Depressed mood documented in this encounter Additional Health Concerns Assessment Noted Time PHQ-9 Depression Total Score: 0 08/09/19 3:10 PM PST documented as of this encounter Care Teams Bar Finish Operator Relationship Specialty Start Date End Date Annika Lehman PA [facility] [place] [address] PCP - General Primary Care 01/10/24 documented as of this encounter
--- OUTSIDE RECORDS SUMMARY | 2024-09-17 08:47 | XMS_ITS | Clinical Summary ---
Author Organization [facility] Address [address] [place] [address] Care Team Providers Care Informatics Nurse Specialist Name Role Phone Unknown, Md Primary Care Provider Unavailabl e Allergies No known active allergies Medications Medication Sig Dispensed Refills Start Date End Date Status amLODIPine (NORVASC) tablet 5 mg Take 5 mg by mouth daily. 0 Active Active Problems No known active problems Social History Tobacco Use Types Packs/Day Years Used Date Smoking Tobacco: Never Smokeless Tobacco: Never Alcohol Use Standard Drinks/Week Comments No 0 (1 standard drink = 0.6 oz pur e alcohol) Sex and Gender Information Value Date Recorded Sex Assigned at Not on file Gender Identity Not on file Sexual Orientation Not on file Last Filed Vital Signs Vital Sign Reading Time Taken Comments Blood Pressure 135/65 03/03/2017 1:10 PM EDT Pulse 67 03/03/2017 1:10 PM EDT Temperature - - Respiratory Rate - - Oxygen Saturation - - Inhaled Oxygen Concentration - - Weight 80.3 kg (177 lb) 03/03/2017 1:10 PM EDT Height 160 cm (5' 3 ) 03/03/2017 1:10 PM EDT Body Mass Index 31.35 03/03/2017 1:10 PM EDT Plan of Treatment Health Maintenance Due Date Last Done Comments Hepatitis B Vaccines (1 of 3 - 3-dose series) 1966 Hepatitis C Screening 1966 COVID-19 Vaccine (#1) 1966 Depression Screening 1978 Preventative Health Evaluation 1984 DTap / Tdap / Td (1 - Tdap) 1985 Cervical Cancer Screening (P ap Smear) 1987 Colon Cancer Screening (Colonoscopy) 2011 Breast Cancer Screening (Mammogram) 2016 Shingrix-Zoster Vaccine (1 of 2) 2016 Influenza Vaccine (#1) 2024 Pneumococcal Vaccine Aged Out No long er eligible based on patient's age to complete this topic RSV Ped < 20 months Aged Out No longe r eligible based on patient's age to complete this topic Care Teams Informatics Nurse Specialist Relationship Specialty Start Date End Date Unknown, PCP - General 03/03/17
--- OUTSIDE RECORDS SUMMARY | 2024-09-17 08:47 | XMS_ITS ---
Author Organization [facility] Address [address] [place] [address] Care Team Providers Care Jet Piercer Operator Name Role Phone Annika Lehman Primary Care Provider [phone] [facility] Program Status:Enrolled (Active) Start date:11/04/2022 Enrollment date:11/04/2022 Case Team Name Relationship Phone Magdalena Fatima LPN (Responsible Staff) Continued Care and Services Coordination
--- OUTSIDE RECORDS SUMMARY | 2024-09-17 08:47 | XMS_ITS | Encounter Summary ---
Author Organization [facility] Address [address] [place] [address] Care Team Providers Care Crime Specialist Name Role Phone Norris Camargo Primary Care Provider [phone] Reason for Referral * Imaging (Routine) - Closed Specialty Diagnoses / Procedures Referred By Petar mi Referred To Contact Radiology Diagnoses Encounter for screening mammogram for malignant neoplasm of breast Procedures Mammo Digital Screening w Zachery Jo MD [address] [place] [address] Phone: tel: fax: [address] [phone] Phone: tel: Referral ID Status Reason Start Date Expiration Date Visits Re quested Visits Authorized [id number] Closed 08/12/2024 08/12/2025 1 1 Reason for Visit * Imaging (Routine) - Closed Specialty Diagnoses / Procedures Referred By Petar mi Referred To Contact Radiology Diagnoses Encounter for screening mammogram for malignant neoplasm of breast Procedures MG Mammo Digital Screening w Zachery Jo MD [address] [place] [address] Phone: tel: fax: [address] [phone] Phone: tel: Referral ID Status Reason Start Date Expiration Date Visits Re quested Visits Authorized [id number] Closed 08/12/2024 08/12/2025 1 1 Encounter Details Date Type Department Care Team (Latest Contact Info) Description 08/27/2024 3:45 PM EST - 08/27/2024 11:59 PM EST Hospital [facility] at [address] [address] Encounter for screening mammogram for malignant neoplasm of breast Discharge Disposition: Home or Self Care Social History Tobacco Use Types Packs/Day Years [...] AM EST documented as of this encounter Last Filed Vital Signs Vital Sign Reading Time Taken Comments Blood Pressure - - Pulse - - Temperature - - Respiratory Rate - - Oxygen Saturation - - Inhaled Oxygen Concentration - - Weight 77.1 kg (170 lb) 08/27/2024 3:47 PM EST Height 160 cm (5' 3 ) 08/27/2024 3:47 PM EST Body Mass Index 30.11 08/27/2024 3:47 PM EST documented in this encounter Functional Status * Are you deaf or do you have serious difficulty hearing? Answer Date of Assessment Author No 05/22/2024 6:48 PM EST Charla Murrell RN * Are you blind or do you have serious difficulty seeing, even when wearing glasses? Answer Date of Assessment Author No 05/22/2024 6:48 PM EST Charla Murrell RN * Do you have serious difficulty walking or climbing stairs? Answer Date of Assessment Author No 05/22/2024 6:48 PM EST Charla Murrell RN * Do you have serious difficulty [...] Charla Arreola RN documented in this encounter Medications at Time of Discharge amlodipine besylate (AMLODIPINE ORAL) Take 5 mg by mouth 1 (one) time each day. aspirin 81 mg EC tablet Take 1 tablet (81 mg total) by mouth 1 (one) time each day. 90 each 1 05/25/2024 05/25/2025 atorvastatin (LIPITOR) 80 mg tablet Take 1 tablet (80 mg total) by mouth at bedtime. 60 each 1 05/24/2024 05/24/2025 fexofenadine (TERRELL) 60 mg tablet Take 1 tablet (60 mg total) by mouth 2 (two) times a day if needed (sinus congestion). 60 tablet 08/02/2024 HYDROXYZINE HCL ORAL Take 25 mg by mouth 1 (one) time each day if needed (anxiety). sertraline HCl (SERTRALINE ORAL) Take 100 mg by mouth 1 (one) time each day. documented as of this encounter Discharge Disposition Disposition Code Departure Means Destination Home or Self Care documented in this encounter Plan of Treatment Upcoming Encounters Date Type Department Care Team (Late st Contact Info) Description 09/19/2024 3:40 PM EST Office Visit [facility] [address] [place] [id number] Harsha Mcallister MD [address] [place] [address] 11/21/2024 3:00 PM EDT Office Visit [facility] [address] [place] [address] Paris Alberto MD [address] [place] [address] documented as of this encounter Procedures Procedure Name Priority Date/Time Associated Diagnosis Comments MG MAMMO DIGITAL SCREENING W DEON BILAT Routine 08/27/2024 3:58 PM EST Encounter for screening mammogram for malignant neoplasm of breast documented in this encounter Results * MG Mammo Digital Screening w [...] Signed Date: 08/28/2024 15:23 ET Workstation ID: [id number] Transcribed By: Self Edit Transcribed Date: 08/28/2024 15:19 ET Narrative 08/28/2024 3:23 PM EST EXAM: MG MAMMO DIGITAL SCREENING W DEON BILAT EXAM DATE AND TIME: 08/27/2024 3:47 PM HISTORY: SCREENING MAMMO FOR BREAST CANCER COMPARISON: 04/12/2023 through 12/03/2020 TECHNIQUE: Bilateral digital breast tomosynthesis was performed in the MLO projection. Computer aided detection with Psonar 3D 3.1 was employed. TISSUE DENSITY: a: The breasts are almost entirely fatty. FINDINGS: No suspicious masses, grouped microcalcifications, or areas of architectural distortion are seen. ??The skin and vascularity are unremarkable. ??Scattered bilateral benign calcifications are seen. Procedure Note Que Kenny MD - 08/28/2024 EXAM: MG MAMMO DIGITAL SCREENING W DEON BILAT EXAM DATE AND TIME: 08/27/2024 3:47 PM HISTORY: SCREENING MAMMO FOR BREAST CANCER COMPARISON: 04/12/2023 through 12/03/2020 TECHNIQUE: Bilateral digital breast tomosynthesis was performed in the MLOprojection. Computer aided detection with Psonar 3D 3.1 wasemployed. TISSUE DENSITY: a: The [...] Signed Date: 08/28/2024 15:23 ET Workstation ID: [id number] Transcribed By: Self Edit Transcribed Date: 08/28/2024 15:19 ET us Zachery Campbell MD IMG BI PROCEDURES Final Result documented in this encounter Visit Diagnoses Diagnosis Encounter for screening mammogram for malignant neoplasm of breast documented in this encounter Care Teams Crime Specialist Relationship Specialty Start Date End Date Norris Camargo PA [address] [place] [address] PCP - General 02/27/21 documented as of this encounter
--- OUTSIDE RECORDS SUMMARY | 2024-09-17 08:47 | XMS_ITS ---
Author Name [facility] Organization Unknown Results Test Name/Text Value Interpretation Date Range Source B2 Glycoprot1 IgG Ser Ql <0.8 Normal - [facility] Cardiolipin IgG Ser IA-aCnc <0.5 Normal - [facility] Cardiolipin IgM Ser IA-aCnc 0.9MPL Normal - [facility] B2 Glycoprot1 IgM Ser Ql 2.4U/mL Normal [facility] Confirm dRVVT NA Normal [id number] [facility] Mixing dRVVT/normal NA Normal [id number] [facility] Screen aPTT 35Sec(s) Normal [id number] - 43 [facility] Screen dRVVT 34Sec(s) Normal [id number] - 44 [facility] LA PPP-Imp SEE BELOW Normal [id number] [facility] Confirm aPTT StaClot NA Normal [id number] [facility] aPTT Hex PL PPP NA Normal [id number] [facility] Glucose Bld-mCnc 101mg/dL Normal [id number] 70 - 199 [facility] BUN SerPl-mCnc 15mg/dL Normal [id number] 7 - 17 [facility] Creat SerPl-mCnc 0.8mg/dL Normal [id number] 0.5 - 1 [facility] eGFRcr SerPlBld CKD-EPI 1 86mL/min/1.7 3m2 Normal [id number] - [facility] CO2 SerPl-sCnc 27mmol/L Normal [id number] 24 - 32 [facility] Glucose SerPl-mCnc 98mg/dL Normal [id number] 70 - 199 [facility] Anion Gap SerPl-sCnc 7 Normal [id number] 5 - 14 [facility] BUN/Creat SerPl 18.8 Normal [id number] 12 - 20 [facility] Chloride SerPl-sCnc 106mmol/L Normal [id number] 98 - 10 7 [facility] Calcium SerPl-mCnc 9.3mg/dL Normal [id number] 8.4 - 10 .2 [facility] Sodium SerPl-sCnc 140mmol/L Normal [id number] 135 - 145 [facility] Potassium SerPl-sCnc 4.2mmol/L Normal [id number] 3.5 - 5.1 [facility] Magnesium SerPl-mCnc 2mg/dL Normal [id number] 1.7 - 2.8 [facility] Glucose Bld-mCnc 100mg/dL Normal [id number] 70 - 199 [facility] Hgb Bld-mCnc 15.4g/dL Normal [id number] 12.5 - 16 [facility] MCHC RBC Auto-mCnc 34.3g/dL Normal [id number] 32 - 36 [facility] PMV Bld Auto 7.4FL Normal [id number] 7.4 - 11.4 [facility] RBC # Bld Auto 5.23M/mcL Normal [id number] 4.2 - 5.4 [facility] WBC # Bld Auto 5.6K/mcL Normal [id number] 4 - 10.5 [facility] RDW RBC Auto-Rto 14.4% Normal [id number] 12.1 - 16. 2 [facility] MCV RBC Auto 85.8FL Normal [id number] 78 - 100 [facility] MCH RBC Qn Auto 29.5pcg Normal [id number] 25 - 33 [facility] Hct VFr Bld Auto 44.9% Normal [id number] 37 - 47 [facility] Platelet # Bld Auto 207K/mcL Normal [id number] 150 - 4 50 [facility] Glucose Bld-mCnc 114mg/dL Normal [id number] [facility] HbA1c MFr Bld 5.6% Normal [id number] - 5.7 [facility] Trigl SerPl-mCnc 185mg/dL Above high normal [id number] - 150 [facility] HDLc SerPl-mCnc 44mg/dL Normal [id number] 37 - 92 [facility] Cholest SerPl-mCnc 250mg/dL Above high normal [id number] 0 - 200 [facility] LDLc SerPl Calc-mCnc 169mg/dL Above high normal [id number] 50 - 130 [facility] VLDLc SerPl Calc-mCnc 37mg/dL Normal [id number] [facility] BUN SerPl-mCnc 18mg/dL Above high normal [id number] 7 - 17 [facility] Creat SerPl-mCnc 0.9mg/dL Normal [id number] 0.5 - 1 [facility] eGFRcr SerPlBld CKD-EPI 2020 74mL/min/1.7 3m2 Normal [id number] - [facility] CO2 SerPl-sCnc 25mmol/L Normal [id number] 24 - 32 [facility] Glucose SerPl-mCnc 93mg/dL Normal [id number] 70 - 199 [facility] Anion Gap SerPl-sCnc 10 Normal [id number] 5 - 14 [facility] BUN/Creat SerPl 20 Normal [id number] 12 - 20 [facility] Chloride SerPl-sCnc 107mmol/L Normal [id number] 98 - 10 7 [facility] Calcium SerPl-mCnc 9mg/dL Normal [id number] 8.4 - 10 .2 [facility] Sodium SerPl-sCnc 142mmol/L Normal [id number] 135 - 145 [facility] Potassium SerPl-sCnc 4mmol/L Normal [id number] 3.5 - 5.1 [facility] Magnesium SerPl-mCnc 2mg/dL Normal [id number] 1.7 - 2.8 [facility] Hgb Bld-mCnc 14.9g/dL Normal [id number] 12.5 - 16 [facility] MCHC RBC Auto-mCnc 34.5g/dL Normal [id number] 32 - 36 [facility] PMV Bld Auto 7.5FL Normal [id number] 7.4 - 11.4 [facility] RBC # Bld Auto 5.02M/mcL Normal [id number] 4.2 - 5.4 CT [facility] WBC # Bld Auto 5.6K/mcL Normal [id number] 4 - 10.5 [facility] RDW RBC Auto-Rto 14.6% Normal [id number] 12.1 - 16. 2 [facility] MCV RBC Auto 85.9FL Normal [id number] 78 - 100 [facility] MCH RBC Qn Auto 29.6pcg Normal [id number] 25 - 33 [facility] Hct VFr Bld Auto 43.1% Normal [id number] 37 - 47 [facility] Platelet # Bld Auto 203K/mcL Normal [id number] 150 - 4 50 [facility] Troponin I SerPl HS-mCnc 182ng/L Critically high [id number] 0 - 14 [facility] Creat SerPl-mCnc 0.8mg/dL Normal [id number] 0.5 - 1 [facility] ALT SerPl-cCnc 20unit/L Normal [id number] 7 - 52 [facility] eGFRcr SerPlBld CKD-EPI 2021 86mL/min/1.7 3m2 Normal [id number] - [facility] CO2 SerPl-sCnc 28mmol/L Normal [id number] 24 - 32 [facility] Anion Gap SerPl-sCnc 7 Normal [id number] 5 - 14 [facility] AST SerPl-cCnc 22unit/L Normal [id number] 5 - 40 [facility] Chloride SerPl-sCnc 103mmol/L Normal [id number] 98 - 10 7 [facility] Bilirub SerPl-mCnc 0.6mg/dL Normal [id number] 0.3 - 1 [facility] Sodium SerPl-sCnc 138mmol/L Normal 135 - 145 [facility] Potassium SerPl-sCnc 4.3mmol/L Normal 3.5 - 5.1 [facility] BUN SerPl-mCnc 15mg/dL Normal 7 - 17 [facility] ALP SerPl-cCnc 78unit/L Normal 34 - 104 [facility] Glucose SerPl-mCnc 92mg/dL Normal 70 - 199 [facility] BUN/Creat SerPl 18.8 Normal 12 - 20 [facility] Calcium SerPl-mCnc 9.5mg/dL Normal 8.4 - 10 .2 [facility] Albumin SerPl-mCnc 4.1g/dL Normal 3.5 - 5 [facility] Prot SerPl-mCnc 7.1g/dL Normal 6.4 - 8.5 [facility] Magnesium SerPl-mCnc 1.9mg/dL Normal 1.7 - 2.8 [facility] aPTT PPP 29.5sec Normal 25 - 37 [facility] INR PPP 1.1 Normal 0.8 - 1.1 [facility] PT Bld 12.8sec Normal 10.5 - 13.3 [facility] Hgb Bld-mCnc 16.2g/dL Above high normal 12.5 - 16 [facility] Eosinophil # Bld Auto 0.1K/mcL Normal 0 - 0.5 [facility] MCHC RBC Auto-mCnc 33.8g/dL Normal 32 - 36 [facility] PMV Bld Auto 7.7FL Normal 7.4 - 11.4 [facility] Basophils/leuk NFr Bld Auto 0.8% Normal 0 - 2 [facility] Monocytes/leuk NFr Bld Auto 7.1% Normal [id number] 2 - 12 [facility] RDW RBC Auto-Rto 14.4% Normal [id number] 12.1 - 16. 2 [facility] Monocytes # Bld Auto 0.5K/mcL Normal [id number] 0 - 0.8 [facility] Basophils # Bld Auto 0.1K/mcL Normal [id number] 0 - 0.2 [facility] Neutrophils # Bld Auto 4.9K/mcL Normal [id number] 1.8 - 7.8 [facility] Hct VFr Bld Auto 48% Above high normal [id number] 37 - 47 [facility] Lymphocytes/leuk NFr Bld Auto 23.1% Normal 20 - 48 [facility] Lymphocytes # Bld Auto 1.6K/mcL Normal [id number] 1 - 3.2 [facility] RBC # Bld Auto 5.59M/mcL Above high normal [id number] 4.2 - 5.4 [facility] Neutrophils/leuk NFr Bld Auto 68.2% Normal [id number] 44 - 74 [facility] Eosinophil/leuk NFr Bld Auto 0.8% Normal 0 - 6 [facility] WBC # Bld Auto 7.1K/mcL Normal [id number] 4 - 10.5 [facility] MCV RBC Auto 85.9FL Normal [id number] 78 - 100 [facility] MCH RBC Qn Auto 29pcg Normal 25 - 33 [facility] Platelet # Bld Auto 209K/mcL Normal [id number] 150 - 4 50 [facility] Glucose Bld-mCnc 92mg/dL Normal 70 - 199 [facility] History of Medication Use Medication Directions Dispensed Refills Start Date End Date Stat fexofenadine (TERRELL) 60 mg tablet Take 1 tablet (60 mg total) by mouth 2 (two) times a day if needed (sinus congestion). 08/02/2024 active atorvastatin (LIPITOR) 80 mg tablet Take 1 tablet (80 mg total) by mouth at bedtime. 05/23/2024 05/24/2024 active heparin (UFH) injection 5,000 Units 5,000 Units, subcutaneous, Every 8 hours scheduled, First dose on Tue05/23/24 at 0600, Enter Indication for use of heparin (UFH) instead of enoxaparin (LOVENOX): (free text): stroke, Indication: VTE Prophylaxis, Indications: Prophylaxis of Venous Thromboembolism 05/23/2024 active HYDROXYZINE HCL ORAL Take 25 mg by mouth 1 (one) time each day if needed (anxiety). active sertraline HCl (SERTRALINE ORAL) Take 100 mg by mouth 1 (one) time each day. active sertraline (ZOLOFT) tablet 100 mg 100 mg, oral, Daily, First dose on Tue05/23/24 at 0900 05/23/2024 active amlodipine besylate (AMLODIPINE ORAL) Take 5 mg by mouth 1 (one) time each day. 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
--- OUTSIDE RECORDS SUMMARY | 2024-09-17 08:47 | XMS_ITS | Clinical Summary ---
Author Organization [facility] Address [address] [place] [address] Care Team Providers Care Laundry Operator Finishing Name Role Phone Annika Lehman Primary Care Provider [phone] Source Comments PLEASE NOTE, if this patient is a minor, it may be UNLAWFUL to discuss sensitive information that is contained in these records (such as FAMILY PLANNING, MENTAL HEALTH or SUBSTANCE ABUSE) with the minor patient's parent or other person without the patient's specific authorization.[facility] Allergies No known active allergies Medications MISCELLANEOUS MEDICAL SUPPLY MISCIndications:Va ricose veins of left leg with edema by miscellaneous route daily Dx: varicose veins, PETER: 99, Supply: thigh high compression stockings. Compression goal 15-20 mmHg. 3 Each 09/19/19 23 Active blood pressure test kit-large Monitor bp daily 1 Kit 11/05/19 23 Active diclofenac sodium (VOLTAREN) 1 % gelIndications:Lef t arm pain APPLY TOPICALLY 2 (TWO) TIMES DAILY NEEDED FOR PAIN 100 g 10/22/19 24 Active acetaminophen (TYLENOL) 500 mg tabletIndications: Bone fracture Take 2 Tablets by mouth every 6 (six) hours as needed for pain 90 Tablet 1 11/29/19 24 Active aspirin [address] tablet Take 81 mg by mouth daily 05/25/20 24 025 Active melatonin 3 mg tabletIndications: Insomnia, unspecified type Take one to two tabs by mouth nightly as needed for sleep. 60 Tablet 2 07/23/19 25 Active zolpidem (AMBIEN) 5 mg tabletIndications: Insomnia, unspecified type Take 2 Tablets by mouth nightly at bedtime as needed for sleep for up to 90 days 30 Tablet 2 07/23/19 25 025 Active sertraline (ZOLOFT) 100 mg tabletIndications: Depressed mood Take 1 Tablet by mouth once daily 90 Tablet 1 07/23/19 25 Active amLODIPine (NORVASC) 5 mg tabletIndications: Essential hypertension, benign Take 1 Tablet by mouth once daily 90 Tablet 08/09/19 25 Active atorvastatin (LIPITOR) 80 mg tabletIndications: Other hyperlipidemia Take 1 Tablet by mouth nightly at bedtime 30 Tablet 11 08/09/19 25 026 Active MISCELLANEOUS MEDICAL SUPPLY MISCIndications:Ac robles ischemic left MCA stroke (HCC-CMS) by miscellaneous route daily. Can for Ambulation Weight - 172 lb and height 5 feet and 4 inches Diagnosis 163.512 1 Each 08/09/19 25 Active Active Problems Problem Noted Date Diagnosed Date Acute ischemic left MCA stroke (HCC-CMS) 024 Depressed mood 02/20/2024 Cervical radiculopathy 07/22/2023 Left lateral epicondylitis 07/22/2023 Right radial fracture 08/201901/11/2022 Mild hyperlipidemia 11/26/2020 Hx of mammogram 10/19/2017 Overview (10/19/2017): Negative in 01/2017 at [facility] Eye exam, routine 03/30/2017 Overview (03/30/2017): On [place] nazanin. Essential hypertension, benign 11/21/2015 Allergic rhinitis due to pollen 11/21/2015 Encounters Date Type Department Care Team Description 09/10/2024 12:00 PM EST Telemedicine Visit [facility] [address] [place] [phone] Annika Lehman PA Hernandez, Maria C Acute ischemic left MCA stroke (HCC-CMS) (Primary Dx) 08/31/2024 11:00 AM EST / Visits [facility] [address] [place] [phone] Kiel Santos, COLLET GLUER Severe episode of recurrent major depressive disorder, without psychotic features (HCC-CMS) (Primary Dx); Insomnia, unspecified type; Depressed mood 08/20/2024 11:30 AM EST BH/MH Visits [address] [phone] Rashmi Valencia, Monique Hua Severe episode of recurrent major depressive disorder, without psychotic features (HCC-CMS) (Primary Dx); Insomnia, unspecified type; Depressed mood 08/09/2024 3:20 PM EST Office Visit [address] [phone] Zachery Campbell MD Rodriguez, Anabel Routine general medical examination at a health care facility (Primary Dx); Essential hypertension, benign; Other hyperlipidemia; Acute ischemic left MCA stroke (HCC-CMS); Screening mammogram for breast cancer; Depressed mood; Health care maintenance 08/09/2024 Interim Notes [address] [phone] [employer] [place] 08/03/2024 9:45 AM EST BH/MH Visits [address] [phone] Kiel Santos, COLLET GLUER Severe episode of recurrent major depressive disorder, without psychotic features (HCC-CMS) (Primary Dx); Insomnia, unspecified type; Depressed mood 08/03/2024 Travel 07/23/2024 11:00 AM EST BH/MH Visits [address] [phone] Leanna Freitas Johanna, PMHNP Severe episode of recurrent major depressive disorder, without psychotic features (HCC-CMS) (Primary Dx); Insomnia, unspecified type; Depressed mood 07/23/2024 Travel 07/19/2024 1:00 PM EST BH/MH Visits [address] [phone] Kiel Santos, COLLET GLUER Severe episode of recurrent major depressive disorder, without psychotic features (HCC-CMS) (Primary Dx) 07/19/2024 Travel 06/29/2024 1:00 PM EST BH/MH Visits [address] [place] [phone] SantosKiel, COLLET GLUER Severe episode of recurrent major depressive disorder, without psychotic features (HCC-CMS) (Primary Dx) 06/29/2024 Travel from Last 3 Months Immunizations Name Administration Dates Next Due Hep B,adult,adjuvanted (HEPLISAV) 06/06/2024(Def erred: Out of Stock) Moderna COVID-19 Vaccine, re d cap blue label, 12+ Primary Series 12/08/2020,11/10/2020 TDAP 06/06/2024 Family History Medical History Relation Name Comments Depression Brother Suicide Attempts Brother Depression Father Suicide Attempts Father Depression Mother Suicide Attempts Mother Depression Sister Suicide Attempts Sister Relation Name Status Comments Brother Father Mother Sister Social History Tobacco Use Types Packs/Day Years Used Date Smoking Tobacco: Never Passive Smoke Exposure: Never Smokeless Tobacco: Never Tobacco Cessation:Counseling Given: Yes Alcohol Use Standard Drinks/Week Comments Not Currently [...] Orientation Straight 07/17/2019 7: 21 AM PST Last Filed Vital Signs Vital Sign Reading Time Taken Comments Blood Pressure 126/78 08/09/2024 3:06 PM EST Pulse 70 08/09/2024 3:06 PM EST Temperature 36.4 ??C (97.5 ??F) 08/09/2024 3:06 PM ES T Respiratory Rate 16 08/09/2024 3:06 PM EST Oxygen Saturation 98% 06/06/2024 1:23 PM EST Inhaled Oxygen Concentration - - Weight 78 kg (172 lb) 08/09/2024 3:06 PM EST Height 162.6 cm (5' 4 ) 08/09/2024 3:06 PM EST Body Mass Index 29.52 08/09/2024 3:06 PM EST Plan of Treatment Upcoming Encounters Date Type Department Care Team (Late st Contact Info) Description 09/25/2024 11:30 AM EDT / Visits [facility] [address] [place] [phone] Rashmi Valencia, LUIS ANTONIOHNP [address] [place] [address] Monique Wise [address] [place] [address] 09/26/2024 11:00 AM EDT / Visits [facility] [address] [place] [phone] Kiel Santos LCSW [address] [place] [address] Health Maintenance Due Date Last Done Comments HPV Screening 1966 Imm-Hepatitis B (1 of 3 - 19+ 3-dose series) 1985 CT Colonography 2011 Colonoscopy 2011 Flexible Sigmoidoscopy 2011 Pap Smear 11/27/2023 11/26/2020, 08/18 (Managed by Outside Provider) FIT/gFOBT 03/09/2024 03/09/2023 [id number] ( season) 2024 12/08/2020, 11/10/2020 Postponed from 03/18/2024 (Patient postponement) Depression Monitoring 11/07/2024 08/09/2024 , 03/30/2024, 01/10/2024, Additional history exists Imm-Zoster, Recombinant (1 of 2) 11/07/2024 Postponed from 2016 (Patient postponement) Imm-Influenza (#1) 2025 03/30/2017 Postponed from 03/18/2024 (Follow up visit) Lipid Screening 05/23/2025 05/23/2024, 12/17, 05/25/2022, Additional history exists Annual Preventive Care Visit 08/09/2025 08/09/2024, 01/07/2023, 03/15/2022, Additional history exists Breast Cancer Screening (Mammogram) 08/27/2025 08/27/2024, 08/27/2024, 04/12/2023, Additional history exists Tobacco Screening 09/10/2025 09/10/2024, 01/10/2024 Cervical Cancer Screening 11/26/2025 Pap + HPV 11/26/2025 11/26/2020 Colorectal Cancer Screening 03/09/2026 Fecal DNA 03/09/2026 03/09/2023 Diabetes Screening 05/23/2027 05/23/2024, 0 01/07/2023, 05/25/2022, Additional history exists Imm-DTaP/Tdap/Td (2 - Td or Tdap) 06/06/2034 06/06/2024 HIV Screening Completed 07/16/2019 Hepatitis C Screening Completed 07/16/2019, 016 Alcohol and Drug Screen Completed 08/09/19, 11/29/2023, 01/07/2023, Additional history exists Cervical Ablation/Cold-Knife Conization Discontinued Cervical Cryotherapy Discontinued Colposcopy Discontinued Endometrial Biopsy Discontinued Excision/Leep Discontinued HPV Genotyping Discontinued Vaginal Pap Discontinued Vulvoscopy Discontinued Goals Goal Patient Goal Type Associated Problems Recent Progress Patient-Stated? Author Blood Pressure < 120/80 Blood Pressure 126/78( 025 3:06 PM EST) No Magdalena Fatima LPN Procedures Procedure Name Priority Date/Time Associated Diagnosis Comments OTHER ORDERS SCANNED DOCUMENT 08/28/2024 3:00 AM EST REFERRAL FOR MAMMOGRAM Routine 08/27/2024 3:00 AM EST Screening mammogram for breast cancer CARD SCANNED DOCUMENT 08/02/2024 3:00 AM EST IMAGING SCANNED DOCUMENT 08/02/2024 3:00 AM EST IMAGING SCANNED DOCUMENT 08/02/2024 3:00 AM EST IMAGING SCANNED DOCUMENT 08/02/2024 3:00 AM EST OTHER ORDERS SCANNED DOCUMENT 07/26/2024 3:00 AM EST OTHER ORDERS SCANNED DOCUMENT 07/23/2024 3:00 AM EST COLOGUARD Routine 03/09/2023 3:00 AM EDT Colon cancer screening COMPREHENSIVE METABOLIC PANEL Routine 01/07/2023 3:36 PM EDT Routine general medical examination at a health care facility Essential hypertension, benign Mild hyperlipidemia Left elbow pain Chronic left shoulder pain LIPID PANEL Routine 01/07/2023 3:36 PM EDT Routine general medical examination at a health care facility Essential hypertension, benign Mild hyperlipidemia Left elbow pain Chronic left shoulder pain THIN PREP PAP + HPV RNA E6/E7 (Q) Routine 11/26/2020 11:51 AM EDT Routine gynecological examination Cervical cancer screening Routine general medical examination at a health care facility ANTIBODY HIV-1&HIV-2 SINGLE RESULT Routine 07/16/2019 9:24 AM EST Routine general medical examination at a health care facility HTN (hypertension), benign HEPATITIS A,B,C PANEL Routine 07/16/2019 9:24 AM EST Routine general medical examination at a health care facility HTN (hypertension), benign from Last 3 Months or Most Recently Relevant to Health Maintenance Results * OTHER ORDERS SCANNED DOCUMENT (08/28/2024 3:00 AM EST) Only the most recent of3 resultswithin the time period is included. 08/28/2024 3:00 AM EST us Annika YEN SCAN OTHER ORDERS Final Result * REFERRAL FOR MAMMOGRAM (08/27/2024 3:00 AM EST) 08/27/2024 3:0 0 AM EST us Zachery Campbell MD IMG RFL MAMMO Final Result * CARD SCANNED DOCUMENT (08/02/2024 3:00 AM EST) 08/02/2024 3:00 AM EST Rosimar Camargo PA-C SCAN ECGS Final Result * IMAGING SCANNED DOCUMENT (08/02/2024 3:00 AM EST) Only the most recent of3 resultswithin the time period is included. 08/02/2024 3:00 AM EST Rosimar Camargo PA-C SCAN IMAGING Final Result * COLOGUARD (03/09/2023 3:00 AM EDT) Stool Stool specimen / Unknown 03/09/2023 3:00 AM EDT Chio Bradshaw PA-C LAB - NO BLOOD DRAW Edited R esult - Final [facility] [address] [facility], [address] [facility] [id number] [place] [address], * (ABNORMAL) LIPID PANEL (01/07/2023 3:36 PM EDT) CHOLESTEROL, TOTAL 264(H) <200 mg/dL [facility] HDL CHOLESTEROL 44(L) > OR = 50 mg/dL [employer] TRIGLYCERIDES 201(H) <150 mg/dL [facility]chen [facility] Comment: If a non-fasting specimen was collected, consider repeat triglyceride testing on a fasting specimen if clinically indicated. Crescencio et al. J. of Clin. Lipidol. 2015;9:129-169. LDL-CHOLESTEROL 181(H) 99 mg/dL (calc) [employer] Comment: Reference range: <100 Desirable range <100 mg/dL for primary prevention; ?? <70 mg/dL for patients with CHD or diabetic patients with > or = 2 CHD risk factors. LDL-C is now calculated using the Saul-Parra calculation, which is a validated novel method providing better accuracy than the Friedewald equation in the estimation of LDL-C. Saul SS et al. FRANKIE. 2013;310(19): 0071-3722 (http://education.RNDOMN/faq/BJT288) CHOL/HDLC RATIO 6.0(H) <5.0 (calc) [employer] NON-HDL CHOLESTEROL 220(H) <130 mg/dL (calc) [employer] Comment: Non-HDL level > or = 220 is very high and may indicate genetic familial hypercholesterolemia (FH). Clinical assessment and measurement of blood lipid levels should be considered for all first-degree relatives of patients with an FH diagnosis. For patients with diabetes plus 1 major ASCVD risk factor, treating to a non-HDL-C goal of <100 mg/dL (LDL-C of <70 mg/dL) is considered a therapeutic option. Blood Blood / Unknown 01/07/2023 3 :36 PM EDT 01/07/2023 3:37 PM EDT Narrative [employer] - 01/08/2023 7:09 AM EDT PATIENT UNABLE TO VOID; ADVISED TO RETURN FOR COLLECTION. us Chio Bradshaw PA-C LAB - BLOOD DRAW Final Resul t [employer] [address] [place] [id number], [facility] [employer] [address] [place] [phone] * COMPREHENSIVE METABOLIC PANEL (01/07/2023 3:36 PM EDT) GLUCOSE 87 65 - 99 mg/dL [facility] [employer] [facility] Comment: ?Fasting reference interval UREA NITROGEN (BUN) 14 7 - 25 mg/dL [facility] CREATININE (blood) 0.90 0.50 - 1.03 mg/dL [facility] EGFR 75 > OR = 60 mL/min/1 .73m2 [employer] Comment: The eGFR is based on the CKD-EPI 2020 equation. To calculate the new eGFR from a previous Creatinine or Cystatin C result, go to https://www.kidney.org/professionals/ kdoqi/gfr%5Fcalculator BUN/CREATININE RATIO NOT APPLICABLE 6 - [facility] [employer] SODIUM 144 135 - 146 mmol/L [facility] [place] [facility] POTASSIUM 4.7 3.5 - 5.3 mmol/L [facility] CHLORIDE 107 98 - 110 mmol/L [facility] CARBON DIOXIDE 26 20 - 32 mmol/L [facility] [employer] [facility] CALCIUM 10.2 8.6 - 10.4 mg/dL [facility] [employer] [facility] PROTEIN, TOTAL 7.4 6.1 - 8.1 g/dL [facility] ALBUMIN 4.6 3.6 - 5.1 g/dL [facility] GLOBULIN 2.8 1.9 - 3.7 g/dL (calc) [facility] ALBUMIN/GLOBUL IN RATIO 1.6 1.0 - 2.5 (calc) [employer] BILIRUBIN, TOTAL 0.6 0.2 - 1.2 mg/dL [facility] ALKALINE PHOSPHATASE 73 37 - 153 U/L [facility] AST 15 10 - 35 U/L [facility] [employer] [facility] ALT 20 6 - 29 U/L [facility] [employer] [facility] Blood Blood / Unknown 01/07/2023 3 :36 PM EDT 01/07/2023 3:37 PM EDT Narrative [employer] [facility] - 01/08/2023 7:09 AM EDT PATIENT UNABLE TO VOID; ADVISED TO RETURN FOR COLLECTION. Chio Bradshaw PA-C LAB - BLOOD DRAW Final Resul t [facility] [address] [address], [facility] [employer] [address] [place] [address] * THIN PREP PAP + HPV RNA E6/E7 (Q) (11/26/2020 11:51 AM EDT) CLINICAL INFORMATION See Note [facility] [employer] [facility] Comment:Routine exam LMP See Note [employer] Comment:[id number] PREV. PAP See Note [facility] [employer] Comment:NONE GIVEN PREV. BX See Note [employer] Comment:NONE GIVEN SOURCE See Note [employer] Comment:Cervix STATEMENT OF ADEQUACY See Note [employer] Comment: Satisfactory for evaluation. Endocervical/transformation zone component present. INTERPRETATION/RESU LT See Note [employer] Comment:Negative for intraep ithelial lesion or malignancy. INFECTION See Note [facility] Comment: Shift in vaginal marciano suggestive of bacterial vaginosis. APPRENTICE COOK See Note [facility] [employer] [facility] Comment: ED, CT(ASCP) CT screening location: [address] [address] COMMENT [facility] HPV MRNA E6/E7 Not Detected Not Detected quitchen [facility] Comment: Methodology: [facility] Counselor-Mediated Amplification This assay detects E6/E7 viral messenger RNA (mRNA) from 14 high-risk HPV types (16,18,31,33,35,39,45,51,52,56,58,59,66,68). The analytical performance characteristics of this assay have been determined by [employer]. The modifications have not been cleared or approved by the FDA. This assay has been validated pursuant to the CLIA regulations and is used for clinical purposes. For additional information, please refer to http://education.Mochila/faq/YSK702x5 (This link if provided for information/ educational purposes only.) CYTOLOGY Cervix uteri structure / Unknown 11/26/2020 11:51 AM EDT 11/26/2020 6:00 PM EDT Narrative [employer] [facility] - 11/27/2020 8:54 PM EDT EXPLANATORY NOTE: The Pap is a screening test for cervical cancer. It is not a diagnostic test and is subject to false negative and false positive results. It is most reliable when a satisfactory sample, regularly obtained, is submitted with relevant clinical findings and history, and when the Pap result is evaluated along with historic and current clinical information. us Chio Bradshaw PA-C LAB - NO BLOOD DRAW Final Re sult [employer] [address] [place] [phone], [facility] [address] [address] * HEPATITIS A,B,C PANEL (07/16/2019 9:24 AM EST) HEPATITIS B SURFACE ANTIBODY NEGATIVE NEGATIVE [employer] [facility] HEPATITIS B SURFACE ANTIGEN NEGATIVE NEGATIVE [facility] Comment: Over the counter supplements containing high doses of biotin may interfere with this assay. ??If interference is suspected, patients shoud be retested after refraining from biotin supplements for 72 hours. HEPATITIS C VIRUS DIAGNOSTIC NEGATIVE NEGATIVE [facility] HEPATITIS A ANTIBODY TOTAL NEGATIVE NEGATIVE [facility] Comment: Over the counter supplements containing high doses of biotin may interfere with this assay. ??If interference is suspected, patients shoud be retested after refraining from biotin supplements for 72 hours. HEPATITIS B CORE ANTIBODY NEGATIVE NEGATIVE [facility] Blood specimen (specimen) Blood / Unknown 07/16/2019 9:24 AM EST 07/16/2019 9:25 AM EST [facility] - 07/16/2019 12:25 PM ANTOINE [employer], [place] [address] Spindle Sander - Mary Del Toro MD PT ID [id number] ORD# [id number] Chio Bradshaw PA-C LAB - BLOOD DRAW [place] [address], * HIV-1 & HIV-2 ANTIBODIES (07/16/2019 9:24 AM EST) [facility] HIV 1 AND 2 ANTIBODY SCREEN NEGATIVE NEGATIVE [facility] Comment: This assay is a 4th generation assay allowing for earlier detection of HIV infection by detecting the presence of the HIV-1 p24 antigen as well as the traditional antibodies to HIV type 1 (including group O) and type 2. ??Use of a 4th generation assay is the current CDC recommendation for HIV screening. Blood specimen (specimen) Blood / Unknown 07/16/2019 9:24 AM EST 07/16/2019 9:25 AM EST Narrative [facility] - 07/16/2019 12:56 PM EST [employer] [address] Sp[employer] - Mary Del Toro MD PT ID [id number] ORD# [id number] us Chio Bradshaw PA-C LAB - BLOOD DRAW Final Resul t [facility] [address] [place] [address], from Last 3 Months or Most Recently Relevant to Health Maintenance Insurance [place] [address] [employer] [facility] Care Teams Laundry Operator Finishing Relationship Specialty Start Date End Date Annika Lehman PA [address] [place] [address] PCP - General Primary Care 01/10/24
--- OUTSIDE RECORDS SUMMARY | 2024-09-17 08:47 | XMS_ITS | Encounter Summary ---
Author Organization [facility] Address [address] [place] [address] Care Team Providers Care Media Operator Name Role Phone Norris Camargo Primary Care Provider [phone] Reason for Referral * Consultation - Authorized Specialty Diagnoses / Procedures Referred By Petar t Referred To Contact Cardiology Diagnoses Cerebral infarction ([place]) [place] [address] [place] [address] Phone: tel: fax: [facility] [address] [facility] [address] [place] [address] Phone: tel: fax: Referral ID Status Reason Start Date Expiration Date Visits Requested Visits Authorized [id number] Authorized Specialty Services Required 09/06/2024 09/06/2025 1 1 Reason for Visit * Reason Onset Date Comments Referral 08/30/2024 Received routine paper referral - AugImelda dey Encounter Details Date Type Department Care Team (Late st Contact Info) Description 08/30/[address] [facility] [address] [facility] [address] [place] [address] Norris Camargo PA [address] [place] [phone] Referral (Received routine paper referral - ) Social History Tobacco Use Types Packs/Day Years [...] Charla Arreola RN documented in this encounter Plan of Treatment Upcoming Encounters Date Type Department Care Team (Late st Contact Info) Description 09/19/2024 3:40 PM EST Office Visit [facility] [place] [address] [place] [address] Harsha Mcallister MD [address] [place] [address] 11/21/2024 3:00 PM EDT Office Visit [facility] - [place] [address] [place] [phone] Paris Alberto MD [address] [place] [address] Scheduled Referrals Name Type Priority Associated Diagnoses Order Schedule Ambulatory referral to Cardiology Outpatient Referral Routine Cerebral infarction (CMS/HCC) 1 Occurrences starting 09/06/2024 until 09/06/2025 documented as of this encounter Visit Diagnoses Diagnosis Cerebral infarction (CMS/HCC)- Primary Unspecified cerebral artery occlusion with cerebral infarction documented in this encounter Care Teams Media Operator Relationship Specialty Start Date End Date Norris Camargo PA [address] [place] [address] PCP - General 02/27/21 documented as of this encounter
== END 2024-09-17 08:27 | disposition home or self-care (01) ==
LOC: HO.HOSX 08:26
DX: Z13.89 Encounter for screening for other disorder (principal)